=== PATIENT | male | born 1960 | race Caucasian/White ===

== ENCOUNTER 2017-01-06 12:16 | Inpatient (IN) | payer OTHER ==
[2017-01-06] MEDS ORDERED: IPRATROPIUM-ALBUTEROL 3 ML NEB INHALATION STA (12:43)
--- NOTE | 2017-01-06 12:46 | ED ---
General Adult HPI - General Chief complaint: Shortness of Breath Stated complaint: Hypotension Time Seen by Provider: 01/06/17 12:35 Source: patient, RN notes reviewed Mode of arrival: ambulatory Limitations: no limitations - History of Present Illness Initial comments: Patient is a pleasant 56-year-old male presenting to the emergency Department with concern for low blood pressure. Patient states when he went to the nurse at [facility] yesterday his blood pressure was 60 and he was told to drink a lot of water. Patient states he went there today and his blood pressure was low. Patient did not know he was coming to the hospital until they brought him. Patient states he does have some mild shortness of breath with exertion and also admits to having a cough that is dry. No fevers. No chest pain. Patient has a known history of atrial fibrillation. Patient did not take his blood pressure medicine yesterday or today. Patient is at [facility] secondary to history of alcohol problems. - Related Data Home Medications Medication Instructions Recorded Confirmed Chlorpheniramine Maleate 4 mg PO Q4H PRN 01/06/17 01/06/17 [Chlor-Trimeton] Furosemide [Lasix] 20 mg PO DAILY@0600 01/06/17 01/06/17 Magnesium Oxide [Mag-Ox] 400 mg PO TID@0600,1500,2200 01/06/17 01/06/17 Multivitamins, Thera [Multivitamin 1 tab PO DAILY@0600 01/06/17 01/06/17 (formulary)] Pantoprazole Sodium [Protonix] 40 mg PO DAILY@0600 01/06/17 01/06/17 Potassium Chloride ER [K-Dur 20] 20 meq PO BID@0600,1730 01/06/17 01/06/17 Rivaroxaban [Xarelto] 20 mg PO DAILY@0600 01/06/17 01/06/17 Spironolactone [Aldactone] 50 mg PO DAILY@0600 01/06/17 01/06/17 Thiamine [Vitamin B-1] 100 mg PO DAILY 01/06/17 01/06/17 guaiFENesin SYRUP 100MG/5ML 200 mg PO Q4H PRN 01/06/17 01/06/17 [Robitussin] traZODone HCL [TraZODone HCl] 50 - 150 mg PO HS 01/06/17 01/06/17 Allergies Allergy/AdvReac Type Severity Reaction Status Date / Time Penicillins Allergy Unknown Verified 01/06/17 13:04 Review of Systems ROS Statement: Those systems with pertinent positive or pertinent negative responses have been documented in the HPI. ROS Other: All systems not noted in ROS Statement are negative. Constitutional: Denies: fever Eyes: Denies: eye pain ENT: Denies: ear pain Respiratory: Reports: cough, dyspnea (With exertion) Cardiovascular: Denies: chest pain Endocrine: Denies: fatigue Gastrointestinal: Denies: abdominal pain Genitourinary: Denies: dysuria Musculoskeletal: Denies: back pain Skin: Denies: rash Neurological: Denies: weakness Past Medical History Past Medical History: Diabetes Mellitus, Hyperlipidemia, Hypertension Additional Past Medical History / Comment(s): chrons History of Any Multi-Drug Resistant Organisms: None Reported Past Surgical History: Bowel Resection, Cholecystectomy Additional Past Surgical History / Comment(s): gastric bypass, tere carpal tunnel Past Psychological History: No Psychological Hx Reported Smoking Status: Never smoker Past Alcohol Use History: Abuse, Daily, Heavy Past Drug Use History: None Reported General Exam Limitations: no limitations General appearance: alert, in no apparent distress Head exam: Present: atraumatic Eye exam: Present: normal appearance, PERRL ENT exam: Present: normal oropharynx Neck exam: Present: normal inspection Respiratory exam: Present: rhonchi Cardiovascular Exam: Present: irregular rhythm Expanded Peripheral pulses: 2+: Radial (R), Radial (L), Posterior Tibialis (R), Posterior Tibialis (L) GI/Abdominal exam: Present: soft. Absent: tenderness Extremities exam: Present: pedal edema (+1 bilateral which patient states is chronic). Absent: calf tenderness Neurological exam: Present: alert Psychiatric exam: Present: normal affect, normal mood Skin exam: Present: normal color Course Vital Signs 01/06/17 01/06/17 01/06/17 12:19 13:09 13:15 Temperature 98.0 F Pulse Rate 101 H 80 90 Respiratory 22 Rate Blood Pressure 104/59 O2 Sat by Pulse 98 Oximetry 01/06/17 14:20 Temperature Pulse Rate 99 Respiratory 16 Rate Blood Pressure 83/57 O2 Sat by Pulse 95 Oximetry - Reevaluation(s) Reevaluation #1: 01/06/17 14:19 Patient does meet criteria for severe sepsis diagnosed at 1419. Blood culture and lactic acid and fluid bolus and antibiotics will be ordered. EKG Findings - EKG Comments: EKG Findings:: A. fib with rate of 93. QRS 100. QT 388. QTC 42. Left axis. Left anterior fascicular block. Poor R-wave progression. No acute ST change. Procedures - Sepsis Sepsis Focused Exam #1 Time Sepsis Criteria Met: 14: Sepsis Focused Exam Date: 01/06/17 Sepsis Focused Exam Time: : Sepsis Focused Exam Complete: Yes Vital Signs & RN Notes Reviewed: Yes Capillary Refill: < 2 Seconds: Fingers, Toes Peripheral Pulses: Normal: Radial (R), Radial (L), Dorsalis Pedis (R), Dorsalis Pedis (L) Skin Color: Normal for Patient Respiratory Exam: rhonchi Cardiovascular Exam: regular rate, normal rhythm Medical Decision Making - Medical Decision Making Patient reevaluated. Patient updated on results and plan. Case discussed with Dr. Benoit, who will admit for hospital call. - Lab Data Result diagrams: 01/06/17 13:00 01/06/17 13:00 Lab Results 01/06/17 01/06/17 01/06/17 Range/Units 13:00 13:00 13:00 WBC 4.9 (3.8-10.6) k/uL RBC 3.52 L (4.30-5.90) m/uL Hgb 9.2 L (13.0-17.5) gm/dL Hct 30.9 L (39.0-53.0) % MCV 87.6 (80.0-100.0) fL MCH 26.0 (25.0-35.0) pg MCHC 29.7 L (31.0-37.0) g/dL RDW 17.6 H (11.5-15.5) % Plt Count 281 (150-450) k/uL Neutrophils % 74 % Lymphocytes % 12 % Monocytes % 7 % Eosinophils % 4 % Basophils % 1 % Neutrophils # 3.6 (1.3-7.7) k/uL Lymphocytes # 0.6 L (1.0-4.8) k/uL Monocytes # 0.3 (0-1.0) k/uL Eosinophils # 0.2 (0-0.7) k/uL Basophils # 0.1 (0-0.2) k/uL Hypochromasia Moderate Anisocytosis Slight PT (9.0-12.0) sec INR (<1.2) APTT (22.0-30.0) sec Sodium 133 L (137-145) mmol/L Potassium 4.7 (3.5-5.1) mmol/L Chloride 101 (98-107) mmol/L Carbon Dioxide 25 (22-30) mmol/L Anion Gap 7 mmol/L BUN 8 L (9-20) mg/dL Creatinine 0.64 L (0.66-1.25) mg/dL Est GFR (MDRD) Af Amer >60 (>60 ml/min/1.73 sqM) Est GFR (MDRD) Non-Af >60 (>60 ml/min/1.73 sqM) Glucose 79 (74-99) mg/dL Calcium 8.5 (8.4-10.2) mg/dL Total Bilirubin 1.0 (0.2-1.3) mg/dL AST 46 (17-59) U/L ALT 30 (21-72) U/L Alkaline Phosphatase 163 H (38-126) U/L Total Creatine Kinase <20 L (55-170) U/L CK-MB (CK-2) 0.5 (0.0-2.4) ng/mL CK-MB (CK-2) Rel Index Troponin I <0.012 (0.000-0.034) ng/mL NT-Pro-B Natriuret Pep pg/mL Total Protein 6.6 (6.3-8.2) g/dL Albumin 2.8 L (3.5-5.0) g/dL 01/06/17 01/06/17 Range/Units 13:00 13:00 WBC (3.8-10.6) k/uL RBC (4.30-5.90) m/uL Hgb (13.0-17.5) gm/dL Hct (39.0-53.0) % MCV (80.0-100.0) fL MCH (25.0-35.0) pg MCHC (31.0-37.0) g/dL RDW (11.5-15.5) % Plt Count (150-450) k/uL Neutrophils % % Lymphocytes % % Monocytes % % Eosinophils % % Basophils % % Neutrophils # (1.3-7.7) k/uL Lymphocytes # (1.0-4.8) k/uL Monocytes # (0-1.0) k/uL Eosinophils # (0-0.7) k/uL Basophils # (0-0.2) k/uL Hypochromasia Anisocytosis PT 20.3 H (9.0-12.0) sec INR 2.1 H (<1.2) APTT 34.7 H (22.0-30.0) sec Sodium (137-145) mmol/L Potassium (3.5-5.1) mmol/L Chloride (98-107) mmol/L Carbon Dioxide (22-30) mmol/L Anion Gap mmol/L BUN (9-20) mg/dL Creatinine (0.66-1.25) mg/dL Est GFR (MDRD) Af Amer (>60 ml/min/1.73 sqM) Est GFR (MDRD) Non-Af (>60 ml/min/1.73 sqM) Glucose (74-99) mg/dL Calcium (8.4-10.2) mg/dL Total Bilirubin (0.2-1.3) mg/dL AST (17-59) U/L ALT (21-72) U/L Alkaline Phosphatase (38-126) U/L Total Creatine Kinase (55-170) U/L CK-MB (CK-2) (0.0-2.4) ng/mL CK-MB (CK-2) Rel Index Troponin I (0.000-0.034) ng/mL NT-Pro-B Natriuret Pep 1770 pg/mL Total Protein (6.3-8.2) g/dL Albumin (3.5-5.0) g/dL - Radiology Data Radiology results: image reviewed (Chest x-ray shows mild cardiomegaly. By basilar airspace disease. Bilateral effusions.) Critical Care Time Critical Care Time: Yes Total Critical Care Time: 32 Disposition Clinical Impression: Severe sepsis, Pneumonia Disposition: ADMITTED IP TO THIS [facility] Condition: Serious Referrals: Nonstaff,Physician [Primary Care Provider] - 1-2 days Decision Time: 14:25
[2017-01-06 13:15] LABS: Anisocytosis Slight; Basophils # (A) 0.1 k/uL (0-0.2); Basophils % (A) 1 %; CH 27.2; CHCM 31.2; Eosinophils # (A) 0.2 k/uL (0-0.7); Eosinophils % (A) 4 %; HCT 30.9 % (39.0-53.0); HDW 2.74; HGB 9.2 gm/dL (13.0-17.5); Hypochromasia Moderate; Luc # (Auto) 0.11; Luc % (Auto) 2; Lymphocytes # (A) 0.6 k/uL (1.0-4.8); Lymphocytes % (A) 12 %; MCHC 29.7 g/dL (31.0-37.0); MCV 87.6 fL (80.0-100.0); Mean Platelet Volume 7.5; Monocytes # (A) 0.3 k/uL (0-1.0); Monocytes % (A) 7 %; Neutrophils # (A) 3.6 k/uL (1.3-7.7); Neutrophils % (A) 74 %; RBC 3.52 m/uL (4.30-5.90); RDW 17.6 % (11.5-15.5); WBC 4.9 k/uL (3.8-10.6); WBC (Perox) 5.09
--- NOTE | 2017-01-06 13:31 | XR ---
EXAMINATION TYPE: XR chest 2V DATE OF EXAM: 01/06/2017 HISTORY: difficulty breathing. REFERENCE: NONE. FINDINGS: The heart is mildly prominent. There are bilateral effusions. There is bibasilar airspace d isease. IMPRESSION: 1. MILD CARDIOMEGALY. 2. BILATERAL EFFUSIONS. 3. BIBASILAR AIRSPACE DISEASE.
[2017-01-06 13:32] LABS: ALT 30 U/L (21-72); AST 46 U/L (17-59); Alkaline Phosphatase 163 U/L (38-126); Anion Gap 7 mmol/L; Blood Urea Nitrogen 8 mg/dL (9-20); Calcium 8.5 mg/dL (8.4-10.2); Carbon Dioxide 25 mmol/L (22-30); Chloride 101 mmol/L (98-107); Glucose 79 mg/dL (74-99); Non-African American GFR(MDRD) >60 (>60 ml/min/1.73 sqM); Potassium 4.7 mmol/L (3.5-5.1); Sodium 133 mmol/L (137-145); Total Protein 6.6 g/dL (6.3-8.2)
[2017-01-06 13:34] LABS: INR 2.1 (<1.2); Partial Thromboplastin Time 34.7 sec (22.0-30.0); Prothrombin Time 20.3 sec (9.0-12.0)
[2017-01-06 13:35] LABS: Creatine Kinase <20 U/L (55-170)
[2017-01-06 13:48] LABS: Creatine Kinase MB 0.5 ng/mL (0.0-2.4); Troponin I <0.012 ng/mL (0.000-0.034)
[2017-01-06] MEDS ORDERED: SODIUM CHLORIDE 0.9% 500 ML IV STA (14:20)
[2017-01-06] MEDS ORDERED: SODIUM CHLORIDE 0.9% 1,000 ML IV STA ×3 (14:20→14:21)
[2017-01-06] MEDS ORDERED: PNEUMONIA PROTOCOL UTILIZED 1 EACH MISC PO PRN (14:22)
[2017-01-06] MEDS ORDERED: AZITHROMYCIN 500 MG in SODIUM CHLORIDE 0.9% 250 ML IVPB STA (14:22)
[2017-01-06] MEDS ORDERED: LORazepam 0.5 MG TAB PO PRN (17:38)
[2017-01-06] MEDS: FUROSEMIDE 10 MG/ML 4 ML VIAL IV SCH (18:52)
[2017-01-06] MEDS: SODIUM CHLORIDE 0.9% 1,000 ML IV SCH (18:53)
--- NOTE | 2017-01-06 20:31 | HP ---
HISTORY AND PHYSICAL CHIEF COMPLAINT: Shortness of breath. HISTORY: This 56-year-old gentleman with past medical history of atrial fibrillation, hypertension, hyperlipidemia being followed by primary physician in the [facility] was receiving alcohol rehab in [place] for the last 1 week. The patient had some cough and shortness of breath for the past few days. Patient also found to have blood pressure low up to 60 systolic according to him and the patient complained of some weakness and tiredness. No syncope was reported. The patient came to [facility] and admitted for evaluation and treatment. Chest x-ray showed possible pneumonia versus CHF and BNP was noted to be 1770. At this time the patient admitted for further evaluation and treatment. There is no history of fever, rigors, headache, loss of consciousness or seizures. PAST MEDICAL HISTORY: History of EtOH, history hypertension, history of atrial fibrillation, bowel resection, gastric bypass. MEDICATIONS: 1. Trazodone 50-150 mg p.o. q.h.s. 2. Robitussin 200 mg q.4h p.r.n. 3. Vitamin B 100 mg p.o. daily. 4. Aldactone 50 mg daily. 5. Xarelto 20 mg daily. 6. K-Dur 20 mg p.o. b.i.d. 7. Protonix 40 mg p.o. daily. 8. Multivitamins 1 p.o. daily. 9. Magnesium oxide 400 mg p.o. t.i.d. 10.Lasix 20 mg p.o. daily. ALLERGIES: PENICILLIN. FAMILY HISTORY: No history of heart disease or strokes in the family. SOCIAL HISTORY: History of alcohol abuse. No history of smoking. Up to fifth and a half. REVIEW OF SYSTEMS: ENT: No diminished hearing or vision. CARDIOVASCULAR: As mentioned. RESPIRATORY: As mentioned earlier. GI: No nausea. : No dysuria. NERVOUS SYSTEM: As mentioned earlier. ALLERGY/IMMUNOLOGY: Asthma, hayfever. MUSCULOSKELETAL: As mentioned earlier. HEMATOLOGY: No history anemia. ENDOCRINE: No history of diabetes, hypothyroid. CONSTITUTIONAL: As mentioned earlier. DERMATOLOGY: Negative. RHEUMATOLOGY: Negative. PSYCHIATRIC: As mentioned earlier. PHYSICAL EXAM: Patient is alert, oriented x3. Pulse 93, blood pressure 91/56, respiration 18, temperature 96.9, pulse ox 98% 2 L. HEENT: Conjunctivae normal. Oral mucosa moist. NECK: No jugular venous distention. No lymph node enlargement. CARDIOVASCULAR: S1, S2 irregular. RESPIRATORY: Breath sounds diminished in the bases. A few scattered rhonchi. No crackles. Breath sounds are markedly diminished at both bases. ABDOMEN: Soft, obese, nontender. No mass palpable. LEGS: Minimal bilateral leg edema. NERVOUS SYSTEM: Higher functions as mentioned earlier. Moves all 4 limbs. No focal motor deficits. LYMPHATICS: No lymphadenopathy in the neck, axillae or groin. SKIN: No rash, ulcer or bleeding. LABS: WBC 4.2, hemoglobin 9.2, INR is 2.1, sodium is 133. ASSESSMENT: 1. Shortness of breath and cough for evaluation possibly CHF acute exacerbation. Rule out pneumonia. 2. Anemia. 3. History of ETOH. 4. Hypertension. 5. Hyperlipidemia. 6. History atrial fibrillation, chronic. 7. Cholecystectomy. 8. Bowel resection. 9. History gastric bypass. RECOMMENDATIONS AND DISCUSSION: This 56-year-old gentleman presented with multiple complex medical issues. Will monitor the patient closely. Continue the current management and symptomatic treatment. At this time I would recommend monitor blood pressure closely. Diuretics, empiric antibiotics initiated. I would recommend a 2D echo with Doppler. Cardiology consultation. Continue the rest of medications and monitor. Ativan p.r.n. Also supplement multivitamin too. Otherwise DVT prophylaxis. Proton pump inhibitors. See orders for details. Guarded prognosis because of multiple complex medical issues. Discussed with the patient who understands. Further recommendations to follow. I cut down the IV to 40 mL for now and continue to watch for any hypotension and strict intake output per chart and daily weights also will be monitored. further recommendations to follow. MMODL / IJN: [id number] / MTDD
[2017-01-06] MEDS ORDERED: traZODone HCL 50 MG TAB PO SCH (21:00)
[2017-01-06] MEDS ORDERED: HEPARIN SODIUM,PORCINE 5,000 UNIT/ML 1 ML VIAL SQ SCH (21:00)
[2017-01-06] MEDS: traZODone HCL 50 MG TAB PO SCH (22:04)
[2017-01-06] MEDS: MAGNESIUM OXIDE 400 MG TAB PO SCH (22:04)
[2017-01-06 22:12] LABS: Appearance,Urine Clear (Clear); Bilirubin,Urine Negative (Negative); Glucose,Urine (UA) Negative (Negative); Ketones,Urine Negative (Negative); Leukocyte Esterase,Urine Negative (Negative); Nitrite,Urine Negative (Negative); Protein,Urine Negative (Negative); Specific Gravity,Urine 1.003 (1.001-1.035); UA Billing (MACRO vs. MICRO) CHEM; Urobilinogen,Urine <2.0 mg/dL (<2.0)
[2017-01-07] MEDS: MAGNESIUM OXIDE 400 MG TAB PO SCH ×3 (06:02→21:00)
[2017-01-07] MEDS: RIVAROXABAN 10 MG TAB PO SCH (06:02)
[2017-01-07] MEDS: SPIRONOLACTONE 25 MG TAB PO SCH (06:02)
[2017-01-07] MEDS: guaiFENesin SYRUP 100MG/5ML 200 MG/10 ML CUP PO PRN ×4 (06:20→21:00)
[2017-01-07 06:27] LABS: Anisocytosis Slight; Basophils # (A) 0.1 k/uL (0-0.2); Basophils % (A) 1 %; CH 27.1; CHCM 30.2; Eosinophils # (A) 0.3 k/uL (0-0.7); Eosinophils % (A) 7 %; HCT 29.6 % (39.0-53.0); HDW 2.63; HGB 8.8 gm/dL (13.0-17.5); Hypochromasia Marked; Luc # (Auto) 0.09; Luc % (Auto) 3; Lymphocytes # (A) 0.6 k/uL (1.0-4.8); Lymphocytes % (A) 17 %; MCH 26.8 pg (25.0-35.0); MCHC 29.7 g/dL (31.0-37.0); MCV 90.1 fL (80.0-100.0); Mean Platelet Volume 7.3; Monocytes # (A) 0.2 k/uL (0-1.0); Monocytes % (A) 7 %; Neutrophils # (A) 2.4 k/uL (1.3-7.7); Neutrophils % (A) 66 %; RBC 3.28 m/uL (4.30-5.90); RDW 17.9 % (11.5-15.5); WBC 3.7 k/uL (3.8-10.6); WBC (Perox) 3.73
[2017-01-07 06:39] LABS: Anion Gap 5 mmol/L; Blood Urea Nitrogen 6 mg/dL (9-20); Calcium 8.6 mg/dL (8.4-10.2); Carbon Dioxide 27 mmol/L (22-30); Chloride 104 mmol/L (98-107); Glucose 74 mg/dL (74-99); Non-African American GFR(MDRD) >60 (>60 ml/min/1.73 sqM); Potassium 4.4 mmol/L (3.5-5.1); Sodium 136 mmol/L (137-145)
--- NOTE | 2017-01-07 07:24 | XR ---
EXAMINATION TYPE: XR chest 1V portable DATE OF EXAM: 01/07/2017 HISTORY: chf. REFERENCE: Previous study dated 01/06/2017. FINDINGS: The heart remains enlarged. There is vascular congestion and subtle interstitial change. Th ere are bilateral effusions worse on the left than the right. There is left basilar airspace disease. IMPRESSION: WORSENING APPEARANCE OF THE CHEST WITH WORSENING CHANGES OF HEART FAILURE, LEFT BASILAR AIRSPACE DISE ASE AND BILATERAL EFFUSIONS.
[2017-01-07] MEDS: POTASSIUM CHLORIDE ER 20 MEQ TAB.ER PO SCH ×2 (07:27→17:53)
[2017-01-07] MEDS: FUROSEMIDE 10 MG/ML 4 ML VIAL IV SCH ×2 (08:47→21:00)
[2017-01-07] MEDS: AZITHROMYCIN 500 MG TAB PO SCH (08:47)
[2017-01-07] MEDS: PANTOPRAZOLE 40 MG TABLET PO SCH (08:48)
[2017-01-07] MEDS: THIAMINE 100 MG TAB PO SCH (11:54)
[2017-01-07] MEDS: MULTIVITAMINS, THERA 1 EACH TAB PO SCH (11:54)
--- NOTE | 2017-01-07 12:05 | CONS ---
CONSULTATION Mr. Zamarripa is a 56-year-old male with a history of chronic atrial fibrillation ablation, history of cardiomyopathy, who was at [facility] for rehab for alcoholism and was noted to having a low blood pressure, referred and subsequently admitted. The patient lives in the [facility] and has been admitted about a year or so ago with congestive heart failure and atrial fibrillation. According to him, his initial ejection fraction was in the 25-30%. He was anticoagulated and it was felt according to him that the etiology of his cardiomyopathy was alcoholism. He has been drinking quite heavily since January after the of his . He denies any dizziness. He has no chest pain. He remembers that he had a stress test about a year ago and no evidence of obstructive coronary artery disease was noted. He has some chronic peripheral edema. No clear PND nor orthopnea. He felt weak and tired with no syncope yesterday. His blood pressure has been on the lower side for the last few days. His coronary risk factors are negative for smoking, which he stopped in the s. He is nondiabetic. He had a prior history of hypertension. MEDICATION: His medications at home include: 1. Lasix 20 mg daily. 2. Protonix. 3. Potassium. 4. Xarelto 20 mg daily. 5. Aldactone 50 mg daily. 6. Thiamin. 7. Trazodone. 8. Robitussin. REVIEW OF SYSTEMS: RESPIRATORY SYSTEM: He has some dyspnea on exertion. No recent wheezing. GI system: No nausea. No vomiting. No GI bleeding. system: No dysuria or hematuria. Nervous system: He denies any stroke or seizure. PHYSICAL EXAMINATION: A 56-year-old male, alert, oriented, in no apparent distress. Blood pressure 111/60 with a heart rate in 90s, afebrile. His blood pressure at times was down in the 80s. HEAD: Normocephalic. Eyes sclerae anicteric. Neck good upstroke. No bruit. No jugular venous distention. LUNGS: Decreased breath sounds at the bases with scattered rhonchi. HEART: Irregular regular S1, S2. No S3. No rub appreciated. ABDOMEN: Soft, nontender. Positive bowel sounds. No megaly. Extremities: Chronic discoloration with decreased distal pulses. LAB DATA: EKG, atrial fibrillation, rate of 93, left axis deviation, poor R progression. Chest x- ray revealed evidence of congestive heart failure with bilateral effusion. Lab data reveal hemoglobin of 8.8, white blood cell of 3.7, platelet count of 236. BUN and creatinine 6 and 0.61, potassium 4.4. Troponin is less than 0.012. NT-proBNP of 1770. IMPRESSION: 1. Episode of hypotension. 2. Chronic atrial fibrillation, persistent and anticoagulated. 3. Symptoms of congestive heart failure in a patient with history of cardiomyopathy, most likely alcoholic cardiomyopathy. 4. Anemia. 5. Prior history of hypertension, now hypotensive. RECOMMENDATION: I do not see evidence to suggest that the patient has a infectious process. I will increase the dose of his IV Lasix to b.i.d. I will repeat his echocardiogram. I will try to obtain his prior workup and depending on his progress, further recommendation will be made. Thank you for this consult. We will follow with you. SALVADOR / IJN: [id number] /
--- NOTE | 2017-01-07 12:22 | P.CNPUL ---
History of Present Illness Consult date: 01/07/17 Reason for consult: dyspnea, hypoxemia, pneumonia, abnormal CXR/CT, other Chief complaint: Shortness of breath, sepsis, pneumonia, heart failure History of present illness: Consult dated 01/07/2017 This is a 56-year-old male who presented to the emergency department because of shortness of breath and apparent low blood pressure. Apparently a nurse at the [facility] that he was staying at noted that his systolic blood pressure was in the 60s and 70s. He was told to drink lots of water. Subsequently, he was also found the following day to have a low blood pressure and for that reason he was sent into the hospital. In addition, he does have some mild shortness of breath. A bit of a cough not producing any phlegm. No fever. No chills. No chest pain. Unknown history of atrial fibrillation. The patient was admitted with a diagnosis of pneumonia and sepsis and heart failure. The patient sleeping comfortably laying on his right side. Has no complaints when I first walked into the room. Review of Systems A 12 point review of system is positive for shortness of breath dry cough weakness and low blood pressure. The rest of his 12 point review of system is unremarkable. The patient does have a history of diabetes hyperlipidemia and hypertension as well as inflammatory bowel disease. He's had previous bowel resection and gallbladder removal. Past Medical History Past Medical History: Atrial Fibrillation, Hyperlipidemia, Hypertension Additional Past Medical History / Comment(s): chrons History of Any Multi-Drug Resistant Organisms: None Reported Past Surgical History: Bowel Resection, Cholecystectomy Additional Past Surgical History / Comment(s): gastric bypass, tere carpal tunnel Past Anesthesia/Blood Transfusion Reactions: No Reported Reaction Past Psychological History: No Psychological Hx Reported Smoking Status: Never smoker Past Alcohol Use History: Abuse, Daily, Heavy Past Drug Use History: None Reported Medications and Allergies Home Medications Medication Instructions Recorded Confirmed Type Chlorpheniramine Maleate 4 mg PO Q4H PRN 01/06/17 01/06/17 History [Chlor-Trimeton] Furosemide [Lasix] 20 mg PO DAILY@0600 01/06/17 01/06/17 History Magnesium Oxide [Mag-Ox] 400 mg PO TID@0600,1500,2200 01/06/17 01/06/17 History Multivitamins, Thera [Multivitamin 1 tab PO DAILY@0600 01/06/17 01/06/17 History (formulary)] Pantoprazole Sodium [Protonix] 40 mg PO DAILY@0600 01/06/17 01/06/17 History Potassium Chloride ER [K-Dur 20] 20 meq PO BID@0600,1730 01/06/17 01/06/17 History Rivaroxaban [Xarelto] 20 mg PO DAILY@0600 01/06/17 01/06/17 History Spironolactone [Aldactone] 50 mg PO DAILY@0600 01/06/17 01/06/17 History Thiamine [Vitamin B-1] 100 mg PO DAILY 01/06/17 01/06/17 History guaiFENesin SYRUP 100MG/5ML 200 mg PO Q4H PRN 01/06/17 01/06/17 History [Robitussin] traZODone HCL [TraZODone HCl] 50 - 150 mg PO HS 01/06/17 01/06/17 History Allergies Allergy/AdvReac Type Severity Reaction Status Date / Time Penicillins Allergy Unknown Verified 01/06/17 13:04 Physical Exam Osteopathic Statement: *. No significant issues noted on an osteopathic structural exam other than those noted in the History and Physical/Consult. Vitals: Vital Signs Temp Pulse Pulse Resp BP BP Pulse Ox 01/07/17 11:49 98.7 F 83 16 95/67 98 01/07/17 08:00 98.6 F 71 16 92/61 96 01/07/17 04:00 97.1 F L 95 16 111/67 98 01/07/17 00:00 97.0 F L 93 16 105/59 97 01/06/17 20:00 96.7 F L 96 16 105/66 98 01/06/17 16:00 93 18 01/06/17 15:47 98.3 F 01/06/17 15:41 96.7 F L 93 18 91/56 99 01/06/17 15:27 99 18 115/75 98 01/06/17 15:11 93 18 88/49 98 01/06/17 14:38 95 18 90/61 98 01/06/17 14:22 18 01/06/17 14:20 99 16 83/57 95 01/06/17 13:37 88 18 116/78 94 L 01/06/17 13:15 90 10/07/17 13:09 80 01/06/17 13:07 86 18 105/72 93 L 01/06/17 12:19 98.0 F 101 H 22 104/59 98 Intake and Output 01/06/17 01/07/17 01/07/17 22:59 06:59 14:59 Intake Total 600 180 Output Total 9936 022 9386 Balance -1299 Intake: Oral 600 180 Output: Urine 8790 669 4612 Other: Voiding Method Urinal Urinal # Voids 2 Weight 113.398 kg 107.5 kg No acute distress, oriented 3 HEENT examination is unremarkable. Mucous membranes are moist. No oral lesions. Neck supple. Full range of motion. No adenopathy or thyromegaly. Neck veins are flat. Cardiovascular examination reveals regular rhythm rate. S1-S2 normal. No S3 or S4. The patient does have a soft heart murmur. Lungs reveal bibasilar crackles and rhonchi. Breath sounds are equal bilaterally but diminished at the bases.. Abdomen soft bowel sounds are heard. No masses or tenderness. Extremities are intact. No cyanosis clubbing. Slight edema. Skin is without rash or lesion. Neurologic examination is brief but nonfocal. Results - Laboratory Findings CBC and BMP: 01/07/17 05:42 01/07/17 05:42 PT/INR, D-dimer PT 20.3 sec (9.0-12.0) H 01/06/17 13:00 INR 2.1 (<1.2) H 01/06/17 13:00 Abnormal lab findings: Abnormal Labs 01/06/17 01/06/17 01/06/17 13:00 13:00 13:00 WBC RBC 3.52 L Hgb 9.2 L Hct 30.9 L MCHC 29.7 L RDW 17.6 H Lymphocytes # 0.6 L PT INR APTT Sodium 133 L BUN 8 L Creatinine 0.64 L Alkaline Phosphatase 163 H Total Creatine Kinase <20 L Albumin 2.8 L U Benzodiazepines Scrn 01/06/17 01/06/17 01/07/17 13:00 22:00 05:42 WBC 3.7 L RBC 3.28 L Hgb 8.8 L Hct 29.6 L MCHC 29.7 L RDW 17.9 H Lymphocytes # 0.6 L PT 20.3 H INR 2.1 H APTT 34.7 H Sodium BUN Creatinine Alkaline Phosphatase Total Creatine Kinase Albumin U Benzodiazepines Scrn Detected H 01/07/17 05:42 WBC RBC Hgb Hct MCHC RDW Lymphocytes # PT INR APTT Sodium 136 L BUN 6 L Creatinine 0.61 L Alkaline Phosphatase Total Creatine Kinase Albumin U Benzodiazepines Scrn - Diagnostic Findings Chest x-ray: image reviewed (X-rays labs and medications are all reviewed.) Assessment and Plan (1) CHF (congestive heart failure) Status: Acute (2) Diabetes Status: Acute (3) Hypertension Status: Acute (4) Hyperlipidemia Status: Acute (5) Hypotension Status: Acute (6) Pneumonia Status: Acute (7) Severe sepsis Status: Acute Plan: Plan dated 01/07/2017 The patient's medications labs and x-rays are all reviewed. The patient appears to have a combination of both heart failure and possible pneumonia. Also, sepsis may be responsible for the hypotension although the patient's normotensive now. Lactic acid was normal. Cultures be done. Repeat x-rays of be done. The patient should be on breathing treatments and antibiotics. We'll continue to follow. Time with Patient: Greater than 30
[2017-01-07] MEDS: SODIUM CHLORIDE 0.9% 1,000 ML IV SCH (15:49)
--- NOTE | 2017-01-07 17:19 | PN ---
PROGRESS NOTE DATE OF SERVICE: 01/07/2017 This 56-year-old gentleman who was admitted with shortness of breath possibly had CHF acute exacerbation. The patient is on diuretics also. The patient is empirically started on antibiotics as well. Pulmonary and Cardiology following the patient closely. Patient had possibly severe cardiomyopathy possibly related to alcohol and is being given for possible pneumonia. Please note patient is from [facility] and actually in rehab at this time. PAST MEDICAL HISTORY: Reviewed. REVIEW OF SYSTEMS: CARDIOVASCULAR: As mentioned. RESPIRATORY: As mentioned earlier. GI: No nausea. : No dysuria. NERVOUS SYSTEM: No numbness or weakness. CURRENT MEDICATIONS: 1. DuoNeb q.i.d. and p.r.n. 2. Zithromax 500 mg p.o. 3. Rocephin 1 g daily. 4. Benadryl 25 mg q.4. 5. Lasix 40 mg b.i.d. 6. Robitussin 200 mg p.r.n. 7. Ativan 0.5 mg p.r.n. 8. Magnesium oxide. 9. Multivitamins 1 daily. 10.Protonix 40 mg daily. 11.Xarelto 20 mg daily. 12.Aldactone 50 mg. 13.Vitamin B thiamin 100 mg daily. 14.Desyrel 50 mg. PHYSICAL EXAM: Patient is alert, oriented x3. Pulse 83, blood pressure 95/60, respirations 16, temperature 98.2, pulse ox 98% on 2 L. HEENT: Conjunctivae normal. CARDIOVASCULAR: S1, S2. RESPIRATORY: Breath sounds diminished at the bases. A few scattered rhonchi and crackles. ABDOMEN: Soft, nontender. No mass palpable. LEGS: No edema. NERVOUS SYSTEM: No focal deficits. LABS: WBC 3,6, hemoglobin is 8.9, sodium 136, INR is 2.1. ASSESSMENT: 1. Shortness of breath and cough, possibly congestive heart failure acute exacerbation with possible suppurative pneumonia. 2. Anemia. 3. History of ETOH. 4. Hypertension. 5. Hyperlipidemia. RECOMMENDATIONS AND DISCUSSION: I recommend to continue the current management and symptomatic treatment. Continue with the current medications, continue with the cautious diuresis. The blood pressure appears to be stabilized at this time. Otherwise we will continue to monitor. Empiric antibiotics. Guarded prognosis. Further recommendations to follow. 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 MMODL / IJN: [id number] / NANCY
[2017-01-07] MEDS: traZODone HCL 50 MG TAB PO SCH (21:00)
[2017-01-08] MEDS: guaiFENesin SYRUP 100MG/5ML 200 MG/10 ML CUP PO PRN ×3 (00:31→11:58)
[2017-01-08] MEDS: POTASSIUM CHLORIDE ER 20 MEQ TAB.ER PO SCH ×2 (06:23→17:08)
[2017-01-08] MEDS: SPIRONOLACTONE 25 MG TAB PO SCH (06:23)
[2017-01-08] MEDS: MAGNESIUM OXIDE 400 MG TAB PO SCH ×3 (06:24→20:27)
[2017-01-08] MEDS: RIVAROXABAN 10 MG TAB PO SCH (06:24)
[2017-01-08 06:39] LABS: Anisocytosis Slight; Basophils % (A) 1 %; CH 26.6; CHCM 29.6; Eosinophils # (A) 0.4 k/uL (0-0.7); Eosinophils % (A) 7 %; HCT 32.6 % (39.0-53.0); HDW 2.67; HGB 9.7 gm/dL (13.0-17.5); Hypochromasia Marked; Luc # (Auto) 0.15; Luc % (Auto) 3; Lymphocytes # (A) 0.9 k/uL (1.0-4.8); Lymphocytes % (A) 15 %; MCH 26.8 pg (25.0-35.0); MCHC 29.8 g/dL (31.0-37.0); MCV 89.8 fL (80.0-100.0); Mean Platelet Volume 6.9; Monocytes # (A) 0.5 k/uL (0-1.0); Monocytes % (A) 8 %; Neutrophils % (A) 67 %; RBC 3.63 m/uL (4.30-5.90); RDW 16.6 % (11.5-15.5)
[2017-01-08 06:53] LABS: Anion Gap 6 mmol/L; Blood Urea Nitrogen 10 mg/dL (9-20); Calcium 8.6 mg/dL (8.4-10.2); Carbon Dioxide 29 mmol/L (22-30); Chloride 98 mmol/L (98-107); Glucose 77 mg/dL (74-99); Non-African American GFR(MDRD) >60 (>60 ml/min/1.73 sqM); Potassium 4.1 mmol/L (3.5-5.1); Sodium 133 mmol/L (137-145)
[2017-01-08] MEDS: AZITHROMYCIN 500 MG TAB PO SCH (08:03)
[2017-01-08] MEDS: PANTOPRAZOLE 40 MG TABLET PO SCH (08:03)
[2017-01-08] MEDS: FUROSEMIDE 10 MG/ML 4 ML VIAL IV SCH ×2 (08:06→20:27)
--- NOTE | 2017-01-08 10:14 | ECHOF ---
Referral Reason:chf MEASUREMENTS -------- HEIGHT: 180.3 cm WEIGHT: 102.5 kg BP: 94/53 RVIDd: 3.4 cm (< 3.3) IVSd: 1.3 cm (0.6 - 1.1) LVIDd: 5.5 cm (3.9 - 5.3) LVPWd: 1.3 cm (0.6 - 1.1) IVSs: 1.3 cm LVIDs: 5.0 cm LVPWs: 1.8 cm LA Diam: 4.0 cm (2.7 - 3.8) LAESV Index (A-L): 39.57 ml/m Ao Diam: 4.2 cm (2.0 - 3.7) AV Cusp: 2.3 cm (1.5 - 2.6) MV EXCURSION: 26.030 mm (> 18.000) MV EF SLOPE: 251 mm/s (70 - 150) EPSS: 1.0 cm FINDINGS -------- Atrial fibrillation. The left ventricular size is normal. There is borderline concentric left ventricular hypertrophy. Overall left ventricular systolic function is severely impaired with, an EF between 25 - 30 %. The right ventricle is mildly enlarged. LA is moderately dilated 34-39 ml/m2 The right atrium is normal in size. There is mild aortic valve sclerosis. Mild mitral annular calcification present. There is trace mitral regurgitation. Trace tricuspid regurgitation present. The pulmonic valve was not well visualized. The aortic root is dilated measuring 4.2cm. Normal inferior vena cava with normal inspiratory collapse consistent with estimated right atrial pressure of 5 mmHg. There is no pericardial effusion. CONCLUSIONS -------- 1. Atrial fibrillation. 2. There is trace mitral regurgitation. 3. Trace tricuspid regurgitation present. 4. The pulmonic valve was not well visualized. 5. The aortic root is dilated measuring 4.2cm. 6. Normal inferior vena cava with normal inspiratory collapse consistent with estimated right atrial pressure of 5 mmHg. 7. There is no pericardial effusion. 8. The left ventricular size is normal. 9. There is borderline concentric left ventricular hypertrophy. 10. Overall left ventricular systolic function is severely impaired with, an EF between 25 - 30 %. 11. The right ventricle is mildly enlarged. 12. LA is moderately dilated 34-39 ml/m2 13. The right atrium is normal in size. 14. There is mild aortic valve sclerosis. 15. Mild mitral annular calcification present. CORE INSERTER: Zamzam Vaz RDCS
[2017-01-08] MEDS: THIAMINE 100 MG TAB PO SCH (11:58)
[2017-01-08] MEDS: MULTIVITAMINS, THERA 1 EACH TAB PO SCH (11:58)
[2017-01-08] MEDS ORDERED: Magnesium Replacement Protocol 1 EACH MISC MISCELLANE PRN (12:20)
--- NOTE | 2017-01-08 12:46 | P.PN ---
Subjective Progress Note Date: 01/08/17 Principal diagnosis: pneumonia, sepsis This is a pleasant 56-year-old gentleman with a history of chronic atrial fibrillation, cardiomyopathy and alcoholism. Presented from [place] after he was noted to have low blood pressure. Patient apparently lives in the [facility] and has been admitted or so ago with congestive heart failure and atrial fibrillation, according to him ejection fraction at that time was 25-30% . He was anticoagulated at that time and it was felt according to him that the etiology of his cardiomyopathy was alcoholism. He has been drinking quite heavily since the of his . Repeat 2-D echo with Doppler this admission shows an ejection fraction of 25-30%, consistent with history. He apparently had a stress test about a year ago that was negative for ischemia. Upon examination, patient is resting comfortably in bed. He continues to complain of a cough, productive. He denies any complaints of PND or orthopnea, has no chest discomfort, dizziness or palpitations. He does complain of chronic peripheral edema. Objective - Vital Signs Vital signs: Vital Signs Temp 96.4 F L 01/08/17 08:00 Pulse 115 H 01/08/17 08:00 Resp 18 01/08/17 08:00 BP 103/44 01/08/17 08:00 Pulse Ox 93 L 01/08/17 08:00 Intake & Output 01/07/17 01/08/17 01/08/17 18:59 06:59 18:59 Intake Total 560 1200 350 Output Total 3470 900 400 Balance -2910 300 -50 Weight 102.8 kg 102.8 kg Intake: Intake, IV Titration 50 Amount cefTRIAXone 1,000 mg In 50 Sodium Chloride 0.9% 50 ml @ 100 mls/hr IVPB Q24HR [facility] Rx#:[id number] Oral 560 1200 300 Output: Urine 3470 900 400 Other: Voiding Method Urinal - Exam PHYSICAL EXAMINATION: HEENT: Head is atraumatic, normocephalic. Pupils equal, round. Neck is supple. There is no elevated jugular venous pressure. HEART EXAMINATION: Heart sounds irregularly irregular, S1 and S2 normal. No murmur or gallop heard. CHEST EXAMINATION: Lungs reveal diminished air entry throughout. No chest wall tenderness is noted on palpation or with deep breathing. ABDOMEN: Soft, nontender. Bowel sounds are heard. No organomegaly noted. EXTREMITIES: 2+ peripheral pulses with evidence of trace peripheral edema and no calf tenderness noted. NEUROLOGIC patient is awake, alert and oriented x3. . - Labs CBC & Chem 7: 01/08/17 05:45 01/08/17 05:45 Labs: Abnormal Lab Results - Last 24 Hours (Table) 01/08/17 01/08/17 01/08/17 Range/Units 05:45 05:45 05:45 RBC 3.63 L (4.30-5.90) m/uL Hgb 9.7 L (13.0-17.5) gm/dL Hct 32.6 L (39.0-53.0) % MCHC 29.8 L (31.0-37.0) g/dL RDW 16.6 H (11.5-15.5) % Lymphocytes # 0.9 L (1.0-4.8) k/uL Sodium 133 L (137-145) mmol/L Magnesium 1.4 L (1.6-2.3) mg/dL Microbiology - Last 24 Hours (Table) 01/06/17 14:30 Blood Culture - Preliminary Blood No Growth after 24 hours 01/06/17 14:25 Blood Culture - Preliminary Blood No Growth after 24 hours Assessment and Plan Plan: Assessment and plan #1 cardiomyopathy, ejection fraction 25-30%, likely secondary to alcohol abuse #2 chronic atrial fibrillation #3 pneumonia #4 acute on chronic systolic congestive heart failure #5 hypotension, history of hypertension Slicer Machine Operator perspective, we'll continue IV Lasix for another 24 hours. We'll continue to follow renal function. Replace magnesium. We'll continue to follow the patient and provide further recommendations accordingly. SPECIAL EDUCATION MATH TEACHER note has been reviewed, I agree with a documented findings and plan of care. Patient was seen and examined.
[2017-01-08] MEDS: MAGNESIUM SULFATE-D5W PMX 1 GM in DEXTROSE/WATER 1 100ML.BAG IVPB SCH ×3 (13:02→15:57)
--- NOTE | 2017-01-08 16:15 | P.PN ---
Subjective Progress Note Date: 01/08/17 Progress note being dictated for Dr. Benoit. Interval history: This a 56-year-old gentleman from [place], admitted with atrial fibrillation, with RVR, CHF exacerbation and and multiple other medical issues. Maintained on IV push Lasix, diuresing well with 24-hour I&O reflecting a negative fluid balance. Magnesium 1.4, receiving replacement. Echo reporting severely impaired LV function, EF 25-30%, dilated aortic root 4.2 cm. Denies chest pain, palpitations or increased shortness of breath. Telemetry atrial fibrillation, heart rates ranging 100s to 110s, up to 150 during the night. Afebrile. Objective - Vital Signs Vital signs: Vital Signs Temp 98 F 01/08/17 12:00 Pulse 111 H 01/08/17 12:00 Resp 18 01/08/17 12:00 BP 99/61 01/08/17 12:00 Pulse Ox 95 01/08/17 12:00 Intake & Output 01/07/17 01/08/17 01/08/17 18:59 06:59 18:59 Intake Total 560 1200 600 Output Total 3470 900 400 Balance -2910 300 200 Weight 102.8 kg 102.8 kg Intake: Intake, IV Titration 50 Amount cefTRIAXone 1,000 mg In 50 Sodium Chloride 0.9% 50 ml @ 100 mls/hr IVPB Q24HR [facility] Rx#:[id number] Oral 560 1200 550 Output: Urine 3470 900 400 Other: Voiding Method Urinal - Exam PHYSICAL EXAM: VITAL SIGNS: [as above] GENERAL: Sitting up in bed, no acute distress HEENT: Conjunctivae normal. eyes normal. NECK: No JVD. No thyroid enlargement. No LNs CARDIOVASCULAR: S1, S2 muffled. Irregular, proximal tachycardia, No murmur, RESPIRATION: Breath sounds diminished in the bases. Occasional rhonchi, fine bibasilar crackles. No bronchial breathing. ABDOMEN: Soft, nontender . No guarding. no masses palpable. No ascites,Bowel sounds heard. LEGS: trace edema. no swelling PSYCHIATRY: Alert and oriented -3, mood and affect normal. NERVOUS SYSTEM: Cranial N 2-12 grossly normal. Moves all 4 limbs. Diffuse weakness No focal deficits. No sensory deficit. Skin: no ulcer no rash Joints: No active swelling. No inflammation. Lymphatic system. No LN neck axilla or groin. - Labs CBC & Chem 7: 01/08/17 05:45 01/08/17 05:45 Labs: Abnormal Lab Results - Last 24 Hours (Table) 01/08/17 01/08/17 01/08/17 Range/Units 05:45 05:45 05:45 RBC 3.63 L (4.30-5.90) m/uL Hgb 9.7 L (13.0-17.5) gm/dL Hct 32.6 L (39.0-53.0) % MCHC 29.8 L (31.0-37.0) g/dL RDW 16.6 H (11.5-15.5) % Lymphocytes # 0.9 L (1.0-4.8) k/uL Sodium 133 L (137-145) mmol/L Magnesium 1.4 L (1.6-2.3) mg/dL Microbiology - Last 24 Hours (Table) 01/06/17 14:30 Blood Culture - Preliminary Blood No Growth after 24 hours 01/06/17 14:25 Blood Culture - Preliminary Blood No Growth after 24 hours Assessment and Plan Plan: 1. [ Acute on chronic CHF exacerbation, systolic dysfunction, EF 25-30%, cardiomyopathy possibly related to alcohol abuse,with possible pneumonia]. 2. [ Anemia]. 3. [ History of EtOH abuse]. 4. [ Hypertension]. 5. [ Hyperlipidemia]. 6. [ Chronic persistent atrial fibrillation]. Plan: Continue on current medication regime , empiric antibiotics, monitoring and symptomatic treatment. Maintain diuretics as per cardiology. Electrolyte supplementation as per replacement protocols. Close monitoring of electrolytes with repeat labs ordered for a.m. Preliminary blood cultures negative, continue following. The impression and plan of care has been dictated as directed. : I performed a H&P examination of this patient and discussed the same with the dictator. I agree with the dictator's note. Any additional findings/opinions/ etc. will be noted.
--- NOTE | 2017-01-08 16:44 | P.PN ---
<Chanel Marquez M - Last Filed: 01/08/17 16:23> Subjective Progress Note Date: 01/08/17 Principal diagnosis: Dyspnea, hypoxemia, heart failure This is a 56-year-old male who presented to the emergency department because of shortness of breath and apparent low blood pressure. Apparently a nurse at the [facility] that he was staying at noted that his systolic blood pressure was in the 60s and 70s. He was told to drink lots of water. Subsequently, he was also found the following day to have a low blood pressure and for that reason he was sent into the hospital. In addition, he does have some mild shortness of breath. A bit of a cough not producing any phlegm. No fever. No chills. No chest pain. Unknown history of atrial fibrillation. The patient was admitted with a diagnosis of pneumonia and sepsis and heart failure. The patient sleeping comfortably laying on his right side. Has no complaints when I first walked into the room. On 01/08/2017 patient is reevaluated. Still complains of exertional dyspnea but states it is improved today. His currently resting in bed, no signs of respiratory distress, no accessory muscle use no wheezing, no rhonchi. He is on room air With O2 saturations are 93-95%. No febrile episodes, he is somewhat tachycardic with a heart rate from 110-120 BPM. Lung sounds diminished air entry throughout. No chest wall tenderness on palpation with deep breathing. Trace peripheral edema noted. Patient continues to diuresis, he is -2610 mL fluid balance over the last 24 hours. Objective - Vital Signs Vital signs: Vital Signs Temp 98 F 01/08/17 12:00 Pulse 111 H 01/08/17 12:00 Resp 18 01/08/17 12:00 BP 99/61 01/08/17 12:00 Pulse Ox 95 01/08/17 12:00 Intake & Output 01/07/17 01/08/17 01/08/17 18:59 06:59 18:59 Intake Total 560 1200 600 Output Total 3470 900 400 Balance -2910 300 200 Weight 102.8 kg 102.8 kg Intake: Intake, IV Titration 50 Amount cefTRIAXone 1,000 mg In 50 Sodium Chloride 0.9% 50 ml @ 100 mls/hr IVPB Q24HR [facility] Rx#:[id number] Oral 560 1200 550 Output: Urine 3470 900 400 Other: Voiding Method Urinal - Constitutional General appearance: Present: average body habitus, no acute distress - EENT Eyes: Present: EOMI, PERRLA ENT: Present: NA/AT - Neck Neck: Present: normal ROM Carotids: bilateral: upstroke normal Thyroid: bilateral: normal size - Respiratory Respiratory: bilateral: diminished - Cardiovascular Heart sounds: normal: S1, S2 Abnormal Heart Sounds: Present: systolic murmur - Peripheral edema ankle Peripheral Edema: bilateral: Trace - Peripheral pulses dorsalis pedis Peripheral Pulses: bilateral: Normal - Gastrointestinal General gastrointestinal: Present: normal bowel sounds - Integumentary Integumentary: Present: normal, normal turgor - Neurologic Neurologic: Present: CNII-XII intact - Musculoskeletal Musculoskeletal: Present: strength equal bilaterally - Psychiatric Psychiatric: Present: A&O x's 3, appropriate affect, intact judgment & insight - Labs CBC & Chem 7: 01/08/17 05:45 01/08/17 05:45 Labs: Abnormal Lab Results - Last 24 Hours (Table) 01/08/17 01/08/17 01/08/17 Range/Units 05:45 05:45 05:45 RBC 3.63 L (4.30-5.90) m/uL Hgb 9.7 L (13.0-17.5) gm/dL Hct 32.6 L (39.0-53.0) % MCHC 29.8 L (31.0-37.0) g/dL RDW 16.6 H (11.5-15.5) % Lymphocytes # 0.9 L (1.0-4.8) k/uL Sodium 133 L (137-145) mmol/L Magnesium 1.4 L (1.6-2.3) mg/dL Microbiology - Last 24 Hours (Table) 01/06/17 14:30 Blood Culture - Preliminary Blood No Growth after 24 hours 01/06/17 14:25 Blood Culture - Preliminary Blood No Growth after 24 hours - Imaging and Cardiology Chest x-ray: report reviewed Assessment and Plan Plan: Assessment: #1. Acute on chronic systolic congestive heart failure. Left ventricular systolic function severely impaired with an EF between 25-30% on an echo from #2. Acute tracheobronchitis, on combination of Zithromax and Rocephin for antibiotic coverage #3. Acute hypotension, currently normotensive #4. History of hypertension #5. History of diabetes #6. History of EtOH dependence, was receiving treatment at [facility] facility #7. History of atrial fibrillation, on Xarelto Plan: Continue with IV diuretics. Accurate I&O's, daily weights Continue azithromycin and Rocephin for acute tracheobronchitis. Continue with DuoNeb nebulized treatments. Monitor electrolytes. Microbiology results have been reviewed and blood cultures show no growth after 24 hours. We will closely follow this patient with you. I performed a history & physical examination of the patient and discussed their management with my nurse practitioner, Chanel Marquez. I reviewed the nurse practitioner's note and agree with the documented findings and plan of care. <Jaimee Medrano - Last Filed: 01/08/17 17:08> Objective - Vital Signs Vital signs: Vital Signs Temp 97.8 F 01/08/17 16:00 Pulse 112 H 01/08/17 16:00 Resp 18 01/08/17 16:00 BP 100/67 01/08/17 16:00 Pulse Ox 95 01/08/17 16:00 Intake & Output 01/07/17 01/08/17 01/08/17 18:59 06:59 18:59 Intake Total 560 1200 1250 Output Total 3470 900 1000 Balance -2910 300 250 Weight 102.8 kg 102.8 kg Intake: Intake, IV Titration 50 Amount cefTRIAXone 1,000 mg In 50 Sodium Chloride 0.9% 50 ml @ 100 mls/hr IVPB Q24HR [facility] Rx#:[id number] Oral 560 1200 1200 Output: Urine 3470 900 1000 Other: Voiding Method Urinal - Labs CBC & Chem 7: 01/08/17 05:45 01/08/17 05:45 Labs: Abnormal Lab Results - Last 24 Hours (Table) 01/08/17 01/08/17 01/08/17 Range/Units 05:45 05:45 05:45 RBC 3.63 L (4.30-5.90) m/uL Hgb 9.7 L (13.0-17.5) gm/dL Hct 32.6 L (39.0-53.0) % MCHC 29.8 L (31.0-37.0) g/dL RDW 16.6 H (11.5-15.5) % Lymphocytes # 0.9 L (1.0-4.8) k/uL Sodium 133 L (137-145) mmol/L Magnesium 1.4 L (1.6-2.3) mg/dL Microbiology - Last 24 Hours (Table) 01/06/17 14:30 Blood Culture - Preliminary Blood No Growth after 48 hours 01/06/17 14:25 Blood Culture - Preliminary Blood No Growth after 48 hours Assessment and Plan Plan: This is a joint evaluation that was done with the nurse practitioner. The patient is doing well. The patient is being diuresed nicely with IV Lasix. I think is a component of acute bronchitis in addition. The patient was in [place] where he had an acute bronchitis and subsequently he went in the decompensated heart failure. He is doing well. He is able to lay down flat in bed. The chest is slightly congested and the patient has a congested cough. No signs of any delirium tremens. We'll continue to follow. Rest of the information as mentioned above by the nurse practitioner.
[2017-01-08] MEDS: IPRATROPIUM-ALBUTEROL 3 ML NEB INHALATION PRN (20:14)
[2017-01-08] MEDS: traZODone HCL 50 MG TAB PO SCH (21:37)
[2017-01-09] MEDS: POTASSIUM CHLORIDE ER 20 MEQ TAB.ER PO SCH ×2 (06:00→17:25)
[2017-01-09] MEDS: MAGNESIUM OXIDE 400 MG TAB PO SCH ×3 (06:00→20:16)
[2017-01-09] MEDS: RIVAROXABAN 10 MG TAB PO SCH (06:01)
[2017-01-09] MEDS: SPIRONOLACTONE 25 MG TAB PO SCH (06:01)
[2017-01-09 06:27] LABS: Anion Gap 8 mmol/L; Blood Urea Nitrogen 9 mg/dL (9-20); Calcium 8.8 mg/dL (8.4-10.2); Carbon Dioxide 28 mmol/L (22-30); Chloride 97 mmol/L (98-107); Glucose 81 mg/dL (74-99); Magnesium 1.8 mg/dL (1.6-2.3); Non-African American GFR(MDRD) >60 (>60 ml/min/1.73 sqM); Potassium 4.2 mmol/L (3.5-5.1); Sodium 133 mmol/L (137-145)
[2017-01-09 06:46] LABS: Anisocytosis Slight; Basophils # (A) 0.1 k/uL (0-0.2); Basophils % (A) 1 %; CH 26.4; CHCM 29.4; Eosinophils # (A) 0.5 k/uL (0-0.7); Eosinophils % (A) 8 %; HCT 36.3 % (39.0-53.0); HDW 2.67; HGB 10.7 gm/dL (13.0-17.5); Hypochromasia Marked; Luc # (Auto) 0.13; Luc % (Auto) 2; Lymphocytes # (A) 1.1 k/uL (1.0-4.8); Lymphocytes % (A) 18 %; MCH 26.6 pg (25.0-35.0); MCHC 29.5 g/dL (31.0-37.0); Mean Platelet Volume 7.1; Monocytes # (A) 0.5 k/uL (0-1.0); Monocytes % (A) 8 %; Neutrophils # (A) 3.7 k/uL (1.3-7.7); Neutrophils % (A) 63 %; RBC 4.04 m/uL (4.30-5.90); RDW 16.5 % (11.5-15.5); WBC 5.9 k/uL (3.8-10.6); WBC (Perox) 6.07
[2017-01-09] MEDS: MAGNESIUM SULFATE-D5W PMX 1 GM in DEXTROSE/WATER 1 100ML.BAG IVPB SCH ×2 (08:07→09:23)
[2017-01-09] MEDS: FUROSEMIDE 10 MG/ML 4 ML VIAL IV SCH ×2 (08:15→20:14)
[2017-01-09] MEDS: AZITHROMYCIN 500 MG TAB PO SCH (08:17)
[2017-01-09] MEDS: PANTOPRAZOLE 40 MG TABLET PO SCH (08:18)
[2017-01-09] MEDS: MULTIVITAMINS, THERA 1 EACH TAB PO SCH (08:19)
[2017-01-09] MEDS: THIAMINE 100 MG TAB PO SCH (08:19)
[2017-01-09] MEDS: IPRATROPIUM-ALBUTEROL 3 ML NEB INHALATION PRN ×2 (08:29→20:35)
--- NOTE | 2017-01-09 12:03 | P.PN ---
<Rylie Daley - Last Filed: 01/09/17 11:54> Subjective Progress Note Date: 01/09/17 Principal diagnosis: Acute exacerbation of chronic systolic congestive heart failure This is a 56-year-old male who presented to the emergency department because of shortness of breath and apparent low blood pressure. Apparently a nurse at the [facility] that he was staying at noted that his systolic blood pressure was in the 60s and 70s. He was told to drink lots of water. Subsequently, he was also found the following day to have a low blood pressure and for that reason he was sent into the hospital. In addition, he does have some mild shortness of breath. A bit of a cough not producing any phlegm. No fever. No chills. No chest pain. Unknown history of atrial fibrillation. The patient was admitted with a diagnosis of pneumonia and sepsis and heart failure. The patient sleeping comfortably laying on his right side. Has no complaints when I first walked into the room. On 01/08/2017 patient is reevaluated. Still complains of exertional dyspnea but states it is improved today. His currently resting in bed, no signs of respiratory distress, no accessory muscle use no wheezing, no rhonchi. He is on room air With O2 saturations are 93-95%. No febrile episodes, he is somewhat tachycardic with a heart rate from 110-120 BPM. Lung sounds diminished air entry throughout. No chest wall tenderness on palpation with deep breathing. Trace peripheral edema noted. Patient continues to diuresis, he is -2610 mL fluid balance over the last 24 hours. The patient is seen again today 01/09/2017 in follow-up on the selective care unit. He is awake and alert in no acute distress. He is breathing easier today as compared to yesterday. He's been maintaining good O2 saturations in the 90s on room air. He remains in a negative balance. Currently on Lasix 40 mg IV push every 12 hours. He remains on antibiotics in the form of ceftriaxone and azithromycin. He remains in atrial fibrillation with varying ventricular response. He has been initiated on Xarelto. Ejection fraction 25- 30%. Objective - Vital Signs Vital signs: Vital Signs Temp 97.1 F L 01/09/17 08:00 Pulse 88 01/09/17 08:45 Resp 16 01/09/17 08:00 BP 95/62 01/09/17 08:00 Pulse Ox 96 01/09/17 08:31 Intake & Output 01/08/17 01/09/17 01/09/17 18:59 06:59 18:59 Intake Total 1450 40 240 Output Total 1000 1800 400 Balance 450 -1760 -160 Weight 102.8 kg 101.2 kg Intake: IV 40 0.9% NS FLUSH 40 Intake, IV Titration 50 Amount cefTRIAXone 1,000 mg In 50 Sodium Chloride 0.9% 50 ml @ 100 mls/hr IVPB Q24HR [facility] Rx#:[id number] Oral 1400 240 Output: Urine 1000 1800 400 Other: # Voids 1 - Exam GENERAL EXAM: Alert, comfortable in no apparent distress. HEAD: Normocephalic. EYES: Normal reaction of pupils, equal size. NOSE: Clear with pink turbinates. THROAT: No erythema or exudates. NECK: No masses, no JVD. CHEST: No chest wall deformity. LUNGS: Equal air entry with basilar crackles. CVS: S1 and S2 normal with an audible murmur, irregular rhythm. ABDOMEN: No hepatosplenomegaly, normal bowel sounds, no guarding or rigidity. SPINE: No scoliosis or deformity SKIN: No rashes CENTRAL NERVOUS SYSTEM: No focal deficits, tone is normal in all 4 extremities. Extremities: There is trace peripheral edema. No clubbing, no cyanosis. Peripheral pulses are intact. - Labs CBC & Chem 7: 01/09/17 05:56 01/09/17 05:56 Labs: Abnormal Lab Results - Last 24 Hours (Table) 01/09/17 01/09/17 Range/Units 05:56 05:56 RBC 4.04 L (4.30-5.90) m/uL Hgb 10.7 L (13.0-17.5) gm/dL Hct 36.3 L (39.0-53.0) % MCHC 29.5 L (31.0-37.0) g/dL RDW 16.5 H (11.5-15.5) % Sodium 133 L (137-145) mmol/L Chloride 97 L (98-107) mmol/L Creatinine 0.60 L (0.66-1.25) mg/dL Microbiology - Last 24 Hours (Table) 01/06/17 14:30 Blood Culture - Preliminary Blood No Growth after 48 hours 01/06/17 14:25 Blood Culture - Preliminary Blood No Growth after 48 hours Assessment and Plan Plan: Assessment: #1. Acute on chronic systolic congestive heart failure. Left ventricular systolic function severely impaired with an EF between 25-30% on an echo from #2. Acute tracheobronchitis, on combination of Zithromax and Rocephin for antibiotic coverage #3. Acute hypotension, currently normotensive #4. History of hypertension #5. History of diabetes #6. History of EtOH dependence, [facility] #7. History of atrial fibrillation, on Xarelto Plan: The patient was seen and evaluated by Dr. Medrano. We'll continue with his current medications. He is improved today as compared to yesterday. Will have a follow-up chest x-ray regards to his congestive heart failure. We'll also continue with bronchodilators and empiric antibiotics. We will increase his activity as tolerated. We'll continue to follow. I performed a history and physical examination on the patient. Lung sounds are clear anteriorly with some faint crackles in the posterior bases. Diminished. I discussed the assessment and plan of care with my nurse practitioner, Rylie Daley. I agree with the above note as dictated. <Jaimee Medrano - Last Filed: 01/09/17 12:08> Objective - Vital Signs Vital signs: Vital Signs Temp 97.1 F L 01/09/17 08:00 Pulse 88 01/09/17 08:45 Resp 16 01/09/17 08:00 BP 95/62 01/09/17 08:00 Pulse Ox 96 01/09/17 08:31 Intake & Output 01/08/17 01/09/17 01/09/17 18:59 06:59 18:59 Intake Total 1450 40 240 Output Total 1000 1800 400 Balance 450 -1760 -160 Weight 102.8 kg 101.2 kg Intake: IV 40 0.9% NS FLUSH 40 Intake, IV Titration 50 Amount cefTRIAXone 1,000 mg In 50 Sodium Chloride 0.9% 50 ml @ 100 mls/hr IVPB Q24HR [facility] Rx#:[id number] Oral 1400 240 Output: Urine 1000 1800 400 Other: # Voids 1 - Labs CBC & Chem 7: 01/09/17 05:56 01/09/17 05:56 Labs: Abnormal Lab Results - Last 24 Hours (Table) 01/09/17 01/09/17 Range/Units 05:56 05:56 RBC 4.04 L (4.30-5.90) m/uL Hgb 10.7 L (13.0-17.5) gm/dL Hct 36.3 L (39.0-53.0) % MCHC 29.5 L (31.0-37.0) g/dL RDW 16.5 H (11.5-15.5) % Sodium 133 L (137-145) mmol/L Chloride 97 L (98-107) mmol/L Creatinine 0.60 L (0.66-1.25) mg/dL Microbiology - Last 24 Hours (Table) 01/06/17 14:30 Blood Culture - Preliminary Blood No Growth after 48 hours 01/06/17 14:25 Blood Culture - Preliminary Blood No Growth after 48 hours Assessment and Plan Plan: The patient was seen today in the presence of the nurse practitioner. This is a joint evaluation. I attest to the information mentioned above. I noted the patient is recovering from his acute CHF exacerbation. He also has a course of antibiotics for an underlying tracheal bronchitis. He was asked to ablate further. My plan is to stabilize his condition and sent this patient back to [place] for further rehabilitation regarding his chronic alcoholism. We' ll continue to follow.
--- NOTE | 2017-01-09 12:22 | XR ---
EXAMINATION TYPE: XR chest 1V portable DATE OF EXAM: 01/09/2017 HISTORY: Shortness of breath. COMPARISON: January 07, 2017 TECHNIQUE: Single view of the chest is submitted. FINDINGS: Demonstrated are scattered senescent parenchymal change. There is no evidence for focal infiltrate. The heart is enlarged. No evidence for overt failure at this time. Persistent bilateral pleural effus ions. Hilar and mediastinal structures are within normal limits. Degenerative changes are seen of the dorsal spine. IMPRESSION: 1. No evidence for overt failure at this time. Persistent bilateral pleural effusions.
--- NOTE | 2017-01-09 15:30 | P.PN ---
Subjective Progress Note Date: 01/09/17 Principal diagnosis: Pneumonia and sepsis This is a pleasant 56-year-old gentleman with a history of chronic atrial fibrillation, cardiomyopathy and alcoholism. Presented from [place] after he was noted to have low blood pressure. Patient apparently lives in the [facility] and has been admitted or so ago with congestive heart failure and atrial fibrillation, according to him ejection fraction at that time was 25-30% . He was anticoagulated at that time and it was felt according to him that the etiology of his cardiomyopathy was alcoholism. He has been drinking quite heavily since the of his . Repeat 2-D echo with Doppler this admission shows an ejection fraction of 25-30%, consistent with history. He apparently had a stress test about a year ago that was negative for ischemia. Upon examination, patient is resting comfortably in bed. He continues to complain of a cough, productive. He denies any complaints of PND or orthopnea, has no chest discomfort, dizziness or palpitations. He does complain of chronic peripheral edema. Objective - Vital Signs Vital signs: Vital Signs Temp 98.0 F 01/09/17 12:00 Pulse 91 01/09/17 13:56 Resp 16 01/09/17 12:00 BP 83/50 01/09/17 13:56 Pulse Ox 96 01/09/17 12:00 Intake & Output 01/08/17 01/09/17 01/09/17 18:59 06:59 18:59 Intake Total 1450 40 480 Output Total 1000 1800 400 Balance 450 -1760 80 Weight 102.8 kg 101.2 kg Intake: IV 40 0.9% NS FLUSH 40 Intake, IV Titration 50 Amount cefTRIAXone 1,000 mg In 50 Sodium Chloride 0.9% 50 ml @ 100 mls/hr IVPB Q24HR [facility] Rx#:[id number] Oral 1400 480 Output: Urine 1000 1800 400 Other: # Voids 1 2 # Bowel Movements 0 - Exam PHYSICAL EXAMINATION: HEENT: Head is atraumatic, normocephalic. Pupils equal, round. Neck is supple. There is no elevated jugular venous pressure. HEART EXAMINATION: Heart sounds irregularly irregular, S1 and S2 normal. No murmur or gallop heard. CHEST EXAMINATION: Lungs reveal diminished air entry throughout with scattered coarse rhonchi. No chest wall tenderness is noted on palpation or with deep breathing. ABDOMEN: Soft, nontender. Bowel sounds are heard. No organomegaly noted. EXTREMITIES: 2+ peripheral pulses with evidence of trace peripheral edema and no calf tenderness noted. NEUROLOGIC patient is awake, alert and oriented x3. - Labs CBC & Chem 7: 01/09/17 05:56 01/09/17 05:56 Labs: Abnormal Lab Results - Last 24 Hours (Table) 01/09/17 01/09/17 Range/Units 05:56 05:56 RBC 4.04 L (4.30-5.90) m/uL Hgb 10.7 L (13.0-17.5) gm/dL Hct 36.3 L (39.0-53.0) % MCHC 29.5 L (31.0-37.0) g/dL RDW 16.5 H (11.5-15.5) % Sodium 133 L (137-145) mmol/L Chloride 97 L (98-107) mmol/L Creatinine 0.60 L (0.66-1.25) mg/dL Microbiology - Last 24 Hours (Table) 01/06/17 14:30 Blood Culture - Preliminary Blood No Growth after 48 hours 01/06/17 14:25 Blood Culture - Preliminary Blood No Growth after 48 hours Assessment and Plan Plan: Assessment and Plan Plan: Assessment and plan #1 cardiomyopathy, ejection fraction 25-30%, likely secondary to alcohol abuse #2 chronic atrial fibrillation #3 pneumonia #4 acute on chronic systolic congestive heart failure #5 hypotension, history of hypertension Cardiology's perspective, we'll continue the IV Lasix for another 24 hours, check lytes BUN and creatinine in the morning. DNP note has been reviewed, I agree with a documented findings and plan of care. Patient was seen and examined.
[2017-01-09] MEDS: traZODone HCL 50 MG TAB PO SCH (22:59)
[2017-01-10] MEDS: SPIRONOLACTONE 25 MG TAB PO SCH ×2 (05:41→08:33)
[2017-01-10] MEDS: RIVAROXABAN 10 MG TAB PO SCH (05:46)
[2017-01-10] MEDS: MAGNESIUM OXIDE 400 MG TAB PO SCH ×3 (05:46→20:28)
[2017-01-10] MEDS: POTASSIUM CHLORIDE ER 20 MEQ TAB.ER PO SCH ×2 (05:46→16:11)
[2017-01-10] MEDS: guaiFENesin SYRUP 100MG/5ML 200 MG/10 ML CUP PO PRN ×2 (05:53→20:26)
[2017-01-10 05:57] LABS: Anisocytosis Slight; Basophils % (A) 1 %; CH 26.6; CHCM 29.9; Eosinophils # (A) 0.5 k/uL (0-0.7); Eosinophils % (A) 9 %; HCT 34.3 % (39.0-53.0); HDW 2.67; HGB 10.3 gm/dL (13.0-17.5); Hypochromasia Marked; Luc # (Auto) 0.15; Luc % (Auto) 3; Lymphocytes % (A) 17 %; MCH 26.9 pg (25.0-35.0); MCHC 30.1 g/dL (31.0-37.0); MCV 89.3 fL (80.0-100.0); Mean Platelet Volume 7.1; Monocytes # (A) 0.4 k/uL (0-1.0); Monocytes % (A) 8 %; Neutrophils # (A) 3.6 k/uL (1.3-7.7); Neutrophils % (A) 63 %; RBC 3.85 m/uL (4.30-5.90); RDW 16.6 % (11.5-15.5); WBC 5.7 k/uL (3.8-10.6); WBC (Perox) 6.27
[2017-01-10 06:06] LABS: Anion Gap 8 mmol/L; Blood Urea Nitrogen 10 mg/dL (9-20); Calcium 8.9 mg/dL (8.4-10.2); Carbon Dioxide 26 mmol/L (22-30); Chloride 99 mmol/L (98-107); Glucose 82 mg/dL (74-99); Magnesium 1.7 mg/dL (1.6-2.3); Non-African American GFR(MDRD) >60 (>60 ml/min/1.73 sqM); Potassium 4.5 mmol/L (3.5-5.1); Sodium 133 mmol/L (137-145)
--- NOTE | 2017-01-10 08:11 | PN ---
PROGRESS NOTE Mr. Zamarripa is a 56-year-old male with a known history of nonischemic cardiomyopathy, history of chronic atrial fibrillation, history of alcoholism who presented with dizziness and symptoms of congestive heart failure. He is feeling better today. His breathing is stable. He is denying any chest pain. No dizziness or palpitation. He denies any nausea. He has not had any dizziness with ambulation. He continued to be on Lasix 40 mg IV q.12 hours, azithromycin, ceftriaxone, Xarelto 20 mg daily and spironolactone 50 mg daily. PHYSICAL EXAMINATION: Blood pressure running in the 90s to the low 100s with a heart rate in the 90s to 100s. LUNGS: Clear. HEART: Irregular, irregular S1, S2. No S3. No rub. ABDOMEN: Soft, nontender. EXTREMITIES: With chronic discoloration and no edema. LAB DATA: Lab data revealed a hemoglobin of 10.3. BUN and creatinine of 10 and 0.63. Potassium 4.5. His magnesium is 1.7. IMPRESSION: 1. Evidence of severe cardiomyopathy, nonischemic in the past. 2. Chronic atrial fibrillation. 3. Alcoholism. 4. Hypotension, stable. RECOMMENDATION: I will switch him to oral diuretic. I will add a low dose of beta alfredo. Increase his level of activity. MMODL / IJN: [id number] /
[2017-01-10] MEDS: MAGNESIUM SULFATE-D5W PMX 1 GM in DEXTROSE/WATER 1 100ML.BAG IVPB SCH ×2 (08:30→09:46)
[2017-01-10] MEDS: METOPROLOL TARTRATE 25 MG TAB PO SCH ×2 (08:31→20:26)
[2017-01-10] MEDS: AZITHROMYCIN 500 MG TAB PO SCH (08:32)
[2017-01-10] MEDS: PANTOPRAZOLE 40 MG TABLET PO SCH (08:32)
[2017-01-10] MEDS: MULTIVITAMINS, THERA 1 EACH TAB PO SCH (08:33)
[2017-01-10] MEDS: THIAMINE 100 MG TAB PO SCH (08:34)
[2017-01-10] MEDS ORDERED: FUROSEMIDE 20 MG TAB PO SCH (09:00)
[2017-01-10] MEDS: IPRATROPIUM-ALBUTEROL 3 ML NEB INHALATION PRN (10:36)
--- NOTE | 2017-01-10 11:21 | P.PN ---
<Rylie Daley - Last Filed: 01/10/17 11:16> Subjective Progress Note Date: 01/10/17 Principal diagnosis: Acute exacerbation of chronic systolic congestive heart failure This is a 56-year-old male who presented to the emergency department because of shortness of breath and apparent low blood pressure. Apparently a nurse at the [facility] that he was staying at noted that his systolic blood pressure was in the 60s and 70s. He was told to drink lots of water. Subsequently, he was also found the following day to have a low blood pressure and for that reason he was sent into the hospital. In addition, he does have some mild shortness of breath. A bit of a cough not producing any phlegm. No fever. No chills. No chest pain. Unknown history of atrial fibrillation. The patient was admitted with a diagnosis of pneumonia and sepsis and heart failure. The patient sleeping comfortably laying on his right side. Has no complaints when I first walked into the room. On 01/08/2017 patient is reevaluated. Still complains of exertional dyspnea but states it is improved today. His currently resting in bed, no signs of respiratory distress, no accessory muscle use no wheezing, no rhonchi. He is on room air With O2 saturations are 93-95%. No febrile episodes, he is somewhat tachycardic with a heart rate from 110-120 BPM. Lung sounds diminished air entry throughout. No chest wall tenderness on palpation with deep breathing. Trace peripheral edema noted. Patient continues to diuresis, he is -2610 mL fluid balance over the last 24 hours. The patient is seen again today 01/09/2017 in follow-up on the selective care unit. He is awake and alert in no acute distress. He is breathing easier today as compared to yesterday. He's been maintaining good O2 saturations in the 90s on room air. He remains in a negative balance. Currently on Lasix 40 mg IV push every 12 hours. He remains on antibiotics in the form of ceftriaxone and azithromycin. He remains in atrial fibrillation with varying ventricular response. He has been on Xarelto. Ejection fraction 25-30%. The patient is seen again today 01/10/2017 in follow-up on the selective care unit. He is currently resting quite comfortably in bed. He is awake and alert in no acute distress. He denies any worsening shortness of breath, cough or congestion. He is nearly back to his baseline. Chest x-ray shows no evidence of overt heart failure. There is persistent small bilateral pleural effusions. He is maintaining good O2 saturations in the upper 90s on room air. He is afebrile. The cultures revealed no growth. No leukocytosis. Hemoglobin stable 10.3. Creatinine 0.63. He is on oral diuretics. His been initiated on beta blockers for some tachycardia arrhythmias secondary to atrial fibrillation with a rapid ventricular response. He remains anticoagulated on Xarelto. Objective - Vital Signs Vital signs: Vital Signs Temp 97.5 F L 01/10/17 08:00 Pulse 92 01/10/17 10:52 Resp 16 01/10/17 08:00 BP 97/64 01/10/17 08:00 Pulse Ox 96 01/10/17 08:00 Intake & Output 01/09/17 01/10/17 01/10/17 18:59 06:59 18:59 Intake Total 730 30 240 Output Total 700 1500 Balance 30 -1470 240 Weight 100.6 kg Intake: IV 10 30 0.9% NS FLUSH 10 30 Oral 720 240 Output: Urine 700 1500 Other: # Voids 2 2 0 # Bowel Movements 0 - Exam GENERAL EXAM: Alert, comfortable in no apparent distress. HEAD: Normocephalic. EYES: Normal reaction of pupils, equal size. NOSE: Clear with pink turbinates. THROAT: No erythema or exudates. NECK: No masses, no JVD. CHEST: No chest wall deformity. LUNGS: Equal air entry with basilar crackles. CVS: S1 and S2 normal with an audible murmur, irregular rhythm. ABDOMEN: No hepatosplenomegaly, normal bowel sounds, no guarding or rigidity. SPINE: No scoliosis or deformity SKIN: No rashes CENTRAL NERVOUS SYSTEM: No focal deficits, tone is normal in all 4 extremities. Extremities: There is trace peripheral edema. No clubbing, no cyanosis. Peripheral pulses are intact. - Labs CBC & Chem 7: 01/10/17 05:33 01/10/17 05:33 Labs: Abnormal Lab Results - Last 24 Hours (Table) 01/10/17 01/10/17 Range/Units 05:33 05:33 RBC 3.85 L (4.30-5.90) m/uL Hgb 10.3 L (13.0-17.5) gm/dL Hct 34.3 L (39.0-53.0) % MCHC 30.1 L (31.0-37.0) g/dL RDW 16.6 H (11.5-15.5) % Sodium 133 L (137-145) mmol/L Creatinine 0.63 L (0.66-1.25) mg/dL Microbiology - Last 24 Hours (Table) 01/06/17 14:30 Blood Culture - Preliminary Blood No Growth after 72 hours 01/06/17 14:25 Blood Culture - Preliminary Blood No Growth after 72 hours Assessment and Plan Plan: Assessment: #1. Acute on chronic exacerbation of systolic congestive heart failure. Left ventricular systolic function severely impaired with an EF between 25-30% on an echo from 01/08/2017 #2. Acute tracheobronchitis, on combination of Zithromax and Rocephin for antibiotic coverage #3. Acute hypotension, currently normotensive #4. History of hypertension #5. History of diabetes #6. History of EtOH dependence, was receiving treatment at [facility] #7. History of atrial fibrillation, on Xarelto Plan: The patient was seen and evaluated by Dr. Medrano. His chest x-ray and labs were reviewed. We'll continue with his current medications. He is improved today as compared to yesterday. We'll also continue with bronchodilators and empiric antibiotics. We will increase his activity as tolerated. He is cleared for discharge from the pulmonary standpoint. The plan is to transfer back to [facility] [place]. I performed a history and physical examination on the patient. Lung sounds are clear anteriorly with some faint crackles in the posterior bases. Diminished. I discussed the assessment and plan of care with my nurse practitioner, Rylie Daley. I agree with the above note as dictated. <Jaimee Medrano - Last Filed: 01/10/17 11:27> Objective - Vital Signs Vital signs: Vital Signs Temp 97.5 F L 01/10/17 08:00 Pulse 92 01/10/17 10:52 Resp 16 01/10/17 08:00 BP 97/64 01/10/17 08:00 Pulse Ox 96 01/10/17 08:00 Intake & Output 01/09/17 01/10/17 01/10/17 18:59 06:59 18:59 Intake Total 730 30 240 Output Total 700 1500 Balance 30 -1470 240 Weight 100.6 kg Intake: IV 10 30 0.9% NS FLUSH 10 30 Oral 720 240 Output: Urine 700 1500 Other: # Voids 2 2 0 # Bowel Movements 0 - Labs CBC & Chem 7: 01/10/17 05:33 01/10/17 05:33 Labs: Abnormal Lab Results - Last 24 Hours (Table) 01/10/17 01/10/17 Range/Units 05:33 05:33 RBC 3.85 L (4.30-5.90) m/uL Hgb 10.3 L (13.0-17.5) gm/dL Hct 34.3 L (39.0-53.0) % MCHC 30.1 L (31.0-37.0) g/dL RDW 16.6 H (11.5-15.5) % Sodium 133 L (137-145) mmol/L Creatinine 0.63 L (0.66-1.25) mg/dL Microbiology - Last 24 Hours (Table) 01/06/17 14:30 Blood Culture - Preliminary Blood No Growth after 72 hours 01/06/17 14:25 Blood Culture - Preliminary Blood No Growth after 72 hours Assessment and Plan Plan: This is a joint evaluation that was done along with a nurse practitioner. The patient's acute bronchitis has subsided. The patient's CHF has also subsided. He has an EF around 25-30%. He is also in atrial fibrillation. He is on anticoagulation. Asked the patient to ablate in the hallway. Ultimately plan is to discharge this patient back to [facility] if he has any reserved spot for alcohol rehabilitation.
[2017-01-10] MEDS: FUROSEMIDE 20 MG TAB PO SCH (16:11)
--- NOTE | 2017-01-10 17:38 | P.PN ---
Subjective Progress Note Date: 01/09/17 Progress note being dictated for Dr. Balbuena 01/08/2017 Interval history: This a 56-year-old gentleman from [place], admitted with atrial fibrillation, with RVR, CHF exacerbation and and multiple other medical issues. Maintained on IV push Lasix, diuresing well with 24-hour I&O reflecting a negative fluid balance. Magnesium 1.4, receiving replacement. Echo reporting severely impaired LV function, EF 25-30%, dilated aortic root 4.2 cm. Denies chest pain, palpitations or increased shortness of breath. Telemetry atrial fibrillation, heart rates ranging 100s to 110s, up to 150 during the night. Afebrile. 01/09/2017 maintained on Rocephin and azithromycin. Anticoagulated on Xarelto. remains in atrial fibrillation, with heart rates up into the 130s, hypotensive with systolic blood pressures in the mid 80s, asymptomatic. Sodium 133. Maintained on Lasix IV push, diuresing well with 24-hour I&O reflecting a negative fluid balance. Chest x-ray reporting persistent bilateral pleural effusions without overt failure at this time. Objective - Vital Signs Vital signs: Vital Signs Temp 98.3 F 01/09/17 15:54 Pulse 117 H 01/09/17 15:54 Resp 18 01/09/17 15:54 BP 92/58 01/09/17 15:54 Pulse Ox 97 01/09/17 15:54 Intake & Output 01/08/17 01/09/17 01/09/17 18:59 06:59 18:59 Intake Total 1450 40 730 Output Total 1000 1800 700 Balance 450 -1760 30 Weight 102.8 kg 101.2 kg Intake: IV 40 10 0.9% NS FLUSH 40 10 Intake, IV Titration 50 Amount cefTRIAXone 1,000 mg In 50 Sodium Chloride 0.9% 50 ml @ 100 mls/hr IVPB Q24HR [facility] Rx#:[id number] Oral 1400 720 Output: Urine 1000 1800 700 Other: # Voids 1 2 # Bowel Movements 0 - Exam PHYSICAL EXAM: VITAL SIGNS: [as above] GENERAL: Sitting up in bed, no acute distress HEENT: Conjunctivae normal. eyes normal. Oral mucosa moist NECK: No JVD. No thyroid enlargement. No LNs CARDIOVASCULAR: Positive S1, S2, Irregular, tachycardic, positive systolic murmur, RESPIRATION: Breath sounds diminished in the bases. Occasional rhonchi, fine bibasilar crackles. No bronchial breathing. ABDOMEN: Soft, nontender . No guarding. no masses palpable. No ascites,Bowel sounds heard. LEGS: trace edema. no swelling PSYCHIATRY: Alert and oriented -3, mood and affect normal. NERVOUS SYSTEM: Cranial N 2-12 grossly normal. Moves all 4 limbs. Diffuse weakness No focal deficits. No sensory deficit. Skin: no ulcer no rash Joints: No active swelling. No inflammation. Lymphatic system. No LN neck axilla or groin. - Labs CBC & Chem 7: 01/10/17 05:33 01/10/17 05:33 Labs: Abnormal Lab Results - Last 24 Hours (Table) 01/09/17 01/09/17 Range/Units 05:56 05:56 RBC 4.04 L (4.30-5.90) m/uL Hgb 10.7 L (13.0-17.5) gm/dL Hct 36.3 L (39.0-53.0) % MCHC 29.5 L (31.0-37.0) g/dL RDW 16.5 H (11.5-15.5) % Sodium 133 L (137-145) mmol/L Chloride 97 L (98-107) mmol/L Creatinine 0.60 L (0.66-1.25) mg/dL Microbiology - Last 24 Hours (Table) 01/06/17 14:30 Blood Culture - Preliminary Blood No Growth after 72 hours 01/06/17 14:25 Blood Culture - Preliminary Blood No Growth after 72 hours Assessment and Plan Plan: 1. [ Acute on chronic CHF exacerbation, systolic dysfunction, EF 25-30%, cardiomyopathy possibly related to alcohol abuse,with possible pneumonia with acute tracheobronchitis]. 2. [ Anemia]. 3. [ History of EtOH abuse]. 4. [ Hypertension, currently with acute hypotension]. 5. [ Hyperlipidemia]. 6. [ Chronic persistent atrial fibrillation]. Plan: Continue on current medication regime , nebulized bronchodilators, empiric antibiotics, monitoring and symptomatic treatment. Maintain Lasix IV push another day as per cardiology. Close monitoring of electrolytes with repeat labs ordered for a.m. Preliminary blood cultures negative, continue following. The impression and plan of care has been dictated as directed. : I performed a H&P examination of this patient and discussed the same with the dictator. I agree with the dictator's note. Any additional findings/opinions/ etc. will be noted.
--- NOTE | 2017-01-10 17:46 | P.PN ---
Subjective Progress note being dictated for Dr. Mccann 01/08/2017 Interval history: This a 56-year-old gentleman from [place], admitted with atrial fibrillation, with RVR, CHF exacerbation and and multiple other medical issues. Maintained on IV push Lasix, diuresing well with 24-hour I&O reflecting a negative fluid balance. Magnesium 1.4, receiving replacement. Echo reporting severely impaired LV function, EF 25-30%, dilated aortic root 4.2 cm. Denies chest pain, palpitations or increased shortness of breath. Telemetry atrial fibrillation, heart rates ranging 100s to 110s, up to 150 during the night. Afebrile. 01/09/2017 maintained on Rocephin and azithromycin. Anticoagulated on Xarelto. remains in atrial fibrillation, with heart rates up into the 130s, hypotensive with systolic blood pressures in the mid 80s, asymptomatic. Sodium 133. Maintained on Lasix IV push, diuresing well with 24-hour I&O reflecting a negative fluid balance. Chest x-ray reporting persistent bilateral pleural effusions without overt failure at this time. 01/10/17 remains in atrial fibrillation, last night heart rate up as high as 180s. Low-dose Beta alfredo initiated this morning. Lasix IV push converted to oral. Diuresing well with 24-hour I&O reflecting a negative fluid balance. Breathing improving. Afebrile. Denies chest pain, palpitations. Objective - Vital Signs Vital signs: Vital Signs Temp 98.2 F 01/10/17 16:00 Pulse 96 01/10/17 16:00 Resp 18 01/10/17 16:00 BP 93/62 01/10/17 16:00 Pulse Ox 95 01/10/17 16:00 Intake & Output 01/09/17 01/10/17 01/10/17 18:59 06:59 18:59 Intake Total 730 30 240 Output Total 700 1500 300 Balance 30 -1470 -60 Weight 100.6 kg Intake: IV 10 30 0.9% NS FLUSH 10 30 Oral 720 240 Output: Urine 700 1500 300 Other: # Voids 2 2 0 # Bowel Movements 0 - Exam PHYSICAL EXAM: VITAL SIGNS: [as above] GENERAL: Sitting up in a chair, no acute distress HEENT: Conjunctivae normal. eyes normal. Oral mucosa moist NECK: No JVD. No thyroid enlargement. No LNs CARDIOVASCULAR: Positive S1, S2, Irregular, tachycardic, positive systolic murmur, RESPIRATION: Breath sounds diminished in the bases. Occasional rhonchi, fine bibasilar crackles. No bronchial breathing. ABDOMEN: Soft, nontender . No guarding. no masses palpable. No ascites,Bowel sounds heard. LEGS: trace edema. no swelling PSYCHIATRY: Alert and oriented -3, mood and affect normal. NERVOUS SYSTEM: Cranial N 2-12 grossly normal. Moves all 4 limbs. Diffuse weakness No focal deficits. No sensory deficit. Skin: no ulcer no rash Joints: No active swelling. No inflammation. Lymphatic system. No LN neck axilla or groin. - Labs CBC & Chem 7: 01/10/17 05:33 01/10/17 05:33 Labs: Abnormal Lab Results - Last 24 Hours (Table) 01/10/17 01/10/17 Range/Units 05:33 05:33 RBC 3.85 L (4.30-5.90) m/uL Hgb 10.3 L (13.0-17.5) gm/dL Hct 34.3 L (39.0-53.0) % MCHC 30.1 L (31.0-37.0) g/dL RDW 16.6 H (11.5-15.5) % Sodium 133 L (137-145) mmol/L Creatinine 0.63 L (0.66-1.25) mg/dL Microbiology - Last 24 Hours (Table) 01/06/17 14:30 Blood Culture - Preliminary Blood No Growth after 96 hours 01/06/17 14:25 Blood Culture - Preliminary Blood No Growth after 96 hours Assessment and Plan Plan: 1. [ Acute on chronic CHF exacerbation, systolic dysfunction, EF 25-30%, cardiomyopathy possibly related to alcohol abuse,with possible pneumonia with acute tracheobronchitis]. 2. [ Anemia]. 3. [ History of EtOH abuse]. 4. [ Hypertension, currently with acute hypotension]. 5. [ Hyperlipidemia]. 6. [ Chronic persistent atrial fibrillation]. Plan: Continue on current medication regime , nebulized bronchodilators, empiric antibiotics, monitoring and symptomatic treatment.Addition of beta alfredo and conversion to oral diuretic, continue monitoring overnight. Discharge planning in progress for tomorrow; pending cardiology clearance. The impression and plan of care has been dictated as directed. : I performed a H&P examination of this patient and discussed the same with the dictator. I agree with the dictator's note. Any additional findings/opinions/ etc. will be noted.
[2017-01-10] MEDS: traZODone HCL 50 MG TAB PO SCH (20:26)
[2017-01-10] MEDS ORDERED: INSULIN GLARGINE 100 UNIT/ML 10 ML VIAL SQ SCH (21:00)
[2017-01-10] MEDS: diphenhydrAMINE 25 MG CAP PO PRN (21:33)
[2017-01-11] MEDS: POTASSIUM CHLORIDE ER 20 MEQ TAB.ER PO SCH ×2 (06:10→16:43)
[2017-01-11] MEDS: guaiFENesin SYRUP 100MG/5ML 200 MG/10 ML CUP PO PRN (06:10)
[2017-01-11] MEDS: MAGNESIUM OXIDE 400 MG TAB PO SCH ×3 (06:10→20:17)
[2017-01-11] MEDS: RIVAROXABAN 10 MG TAB PO SCH (06:10)
[2017-01-11 06:49] LABS: Anisocytosis Slight; Basophils # (A) 0.1 k/uL (0-0.2); Basophils % (A) 1 %; CH 26.3; CHCM 29.6; Eosinophils # (A) 0.6 k/uL (0-0.7); Eosinophils % (A) 10 %; HCT 36.8 % (39.0-53.0); HDW 2.66; HGB 10.8 gm/dL (13.0-17.5); Hypochromasia Marked; Luc # (Auto) 0.14; Luc % (Auto) 3; Lymphocytes % (A) 18 %; MCH 26.1 pg (25.0-35.0); MCHC 29.3 g/dL (31.0-37.0); Monocytes # (A) 0.4 k/uL (0-1.0); Monocytes % (A) 8 %; Neutrophils # (A) 3.4 k/uL (1.3-7.7); Neutrophils % (A) 60 %; RBC 4.14 m/uL (4.30-5.90); RDW 16.3 % (11.5-15.5); WBC 5.6 k/uL (3.8-10.6); WBC (Perox) 6.01
[2017-01-11 07:01] LABS: Anion Gap 8 mmol/L; Blood Urea Nitrogen 12 mg/dL (9-20); Carbon Dioxide 24 mmol/L (22-30); Chloride 100 mmol/L (98-107); Cholesterol 131 mg/dL (<200); Glucose 81 mg/dL (74-99); HDL Cholesterol 31 mg/dL (40-60); Magnesium 1.8 mg/dL (1.6-2.3); Non-African American GFR(MDRD) >60 (>60 ml/min/1.73 sqM); Sodium 132 mmol/L (137-145)
[2017-01-11] MEDS: FUROSEMIDE 20 MG TAB PO SCH ×2 (08:52→14:57)
[2017-01-11] MEDS: METOPROLOL TARTRATE 25 MG TAB PO SCH ×2 (08:52→20:17)
[2017-01-11] MEDS: AZITHROMYCIN 500 MG TAB PO SCH (08:52)
[2017-01-11] MEDS: SPIRONOLACTONE 25 MG TAB PO SCH (08:53)
[2017-01-11] MEDS: PANTOPRAZOLE 40 MG TABLET PO SCH (08:53)
[2017-01-11 11:24] VITALS: BMI 30.9
[2017-01-11] MEDS: THIAMINE 100 MG TAB PO SCH (11:40)
--- NOTE | 2017-01-11 12:00 | P.PN ---
Subjective Progress Note Date: 01/11/17 This is a 56-year-old male who presented to the emergency department because of shortness of breath and apparent low blood pressure. Apparently a nurse at the [facility] that he was staying at noted that his systolic blood pressure was in the 60s and 70s. He was told to drink lots of water. Subsequently, he was also found the following day to have a low blood pressure and for that reason he was sent into the hospital. In addition, he does have some mild shortness of breath. A bit of a cough not producing any phlegm. No fever. No chills. No chest pain. Unknown history of atrial fibrillation. The patient was admitted with a diagnosis of pneumonia and sepsis and heart failure. The patient sleeping comfortably laying on his right side. Has no complaints when I first walked into the room. On 01/08/2017 patient is reevaluated. Still complains of exertional dyspnea but states it is improved today. His currently resting in bed, no signs of respiratory distress, no accessory muscle use no wheezing, no rhonchi. He is on room air With O2 saturations are 93-95%. No febrile episodes, he is somewhat tachycardic with a heart rate from 110-120 BPM. Lung sounds diminished air entry throughout. No chest wall tenderness on palpation with deep breathing. Trace peripheral edema noted. Patient continues to diuresis, he is -2610 mL fluid balance over the last 24 hours. The patient is seen again today 01/09/2017 in follow-up on the selective care unit. He is awake and alert in no acute distress. He is breathing easier today as compared to yesterday. He's been maintaining good O2 saturations in the 90s on room air. He remains in a negative balance. Currently on Lasix 40 mg IV push every 12 hours. He remains on antibiotics in the form of ceftriaxone and azithromycin. He remains in atrial fibrillation with varying ventricular response. He has been on Xarelto. Ejection fraction 25-30%. The patient is seen again today 01/10/2017 in follow-up on the selective care unit. He is currently resting quite comfortably in bed. He is awake and alert in no acute distress. He denies any worsening shortness of breath, cough or congestion. He is nearly back to his baseline. Chest x-ray shows no evidence of overt heart failure. There is persistent small bilateral pleural effusions. He is maintaining good O2 saturations in the upper 90s on room air. He is afebrile. The cultures revealed no growth. No leukocytosis. Hemoglobin stable 10.3. Creatinine 0.63. He is on oral diuretics. His been initiated on beta blockers for some tachycardia arrhythmias secondary to atrial fibrillation with a rapid ventricular response. He remains anticoagulated on Xarelto. On 01/11/2017 the patient is being seen in follow-up. No active pulmonary issues. The patient is having some issues with tachycardia in relation with his atrial fibrillation. Cardiology requested the patient's stay in the hospital for another 24 hours. Meanwhile readings are being made for this patient ultimately go back to [place] for further rehabilitation. He denied it of ventilation with Xarelto. He has no new complaints otherwise. Note that the patient was restarted back on his beta blockers and currently is on metoprolol 25 mg by mouth twice a day. There is being utilized for rate control. His blood pressure is holding knowing that the metoprolol was started at a lower dose. Objective - Vital Signs Vital signs: Vital Signs Temp 99.1 F 01/11/17 11:37 Pulse 87 01/11/17 11:37 Resp 16 01/11/17 11:37 BP 78/51 01/11/17 11:37 Pulse Ox 95 01/11/17 11:37 Intake & Output 01/10/17 01/11/17 01/11/17 18:59 06:59 18:59 Intake Total 720 360 240 Output Total 300 250 Balance 420 110 240 Weight 100.7 kg 100.7 kg Intake: Oral 720 360 240 Output: Urine 300 250 Other: # Voids 0 1 1 - Exam GENERAL EXAM: Alert, comfortable in no apparent distress. HEAD: Normocephalic. EYES: Normal reaction of pupils, equal size. NOSE: Clear with pink turbinates. THROAT: No erythema or exudates. NECK: No masses, no JVD. CHEST: No chest wall deformity. LUNGS: Equal air entry with basilar crackles. CVS: S1 and S2 normal with an audible murmur, irregular rhythm. ABDOMEN: No hepatosplenomegaly, normal bowel sounds, no guarding or rigidity. SPINE: No scoliosis or deformity SKIN: No rashes CENTRAL NERVOUS SYSTEM: No focal deficits, tone is normal in all 4 extremities. Extremities: There is trace peripheral edema. No clubbing, no cyanosis. Peripheral pulses are intact. - Labs CBC & Chem 7: 01/11/17 06:34 01/11/17 06:31 Labs: Abnormal Lab Results - Last 24 Hours (Table) 01/11/17 01/11/17 Range/Units 06:31 06:34 RBC 4.14 L (4.30-5.90) m/uL Hgb 10.8 L (13.0-17.5) gm/dL Hct 36.8 L (39.0-53.0) % MCHC 29.3 L (31.0-37.0) g/dL RDW 16.3 H (11.5-15.5) % Sodium 132 L (137-145) mmol/L Creatinine 0.65 L (0.66-1.25) mg/dL HDL Cholesterol 31 L (40-60) mg/dL Microbiology - Last 24 Hours (Table) 01/10/17 10:30 Gram Stain - Preliminary Sputum Sputum Culture - Preliminary 01/06/17 14:30 Blood Culture - Preliminary Blood No Growth after 96 hours 01/06/17 14:25 Blood Culture - Preliminary Blood No Growth after 96 hours Assessment and Plan Plan: Assessment: #1. Acute on chronic exacerbation of systolic congestive heart failure. Left ventricular systolic function severely impaired with an EF between 25-30% on an echo from 01/08/2017 #2. Acute tracheobronchitis, on combination of Zithromax and Rocephin for antibiotic coverage #3. Acute hypotension, currently normotensive #4. History of hypertension #5. History of diabetes #6. History of EtOH dependence, [facility] #7. History of atrial fibrillation, on Xarelto Plan: No active pulmonary issues. The ongoing problem is his tachycardia and lower blood pressure. The metoprolol dose is being regulated by cardiology. He is currently on 25 mg by mouth twice a day. Monitor the heart rate. Monitor blood pressure. Continue anticoagulation. Completed the course of Zithromax. Stop the DuoNeb nebulized treatments which could be potentially contributing to his heart rate and tachycardia. We'll follow.
--- NOTE | 2017-01-11 14:58 | P.PN ---
Subjective Progress Note Date: 01/11/17 Principal diagnosis: Pneumonia and sepsis This is a pleasant 56-year-old gentleman with a history of chronic atrial fibrillation, cardiomyopathy and alcoholism. Presented from [place] after he was noted to have low blood pressure. Patient apparently lives in the [facility] and has been admitted or so ago with congestive heart failure and atrial fibrillation, according to him ejection fraction at that time was 25-30% . He was anticoagulated at that time and it was felt according to him that the etiology of his cardiomyopathy was alcoholism. He has been drinking quite heavily since the of his . Repeat 2-D echo with Doppler this admission shows an ejection fraction of 25-30%, consistent with history. He apparently had a stress test about a year ago that was negative for ischemia. Upon examination, patient is resting comfortably in bed. He continues to complain of a cough, productive. He denies any complaints of PND or orthopnea, has no chest discomfort, dizziness or palpitations. He does complain of chronic peripheral edema. 01/11/2017 Pateint seen and examined today, he denies any dizziness or lightheadedness however his blood pressure seems to be staying in the 80s range, his normal blood pressure sits around 90 systolic. Beta Morris was held because of the hypotension today. We would like the patient to be up ambulating in the hallway , to see if he'll tolerate his beta morris, otherwise we may need to decrease the dose. Plan for possible discharge home in 24 hours if stable. Objective - Vital Signs Vital signs: Vital Signs Temp 99.1 F 01/11/17 11:37 Pulse 87 01/11/17 11:37 Resp 16 01/11/17 11:37 BP 78/51 01/11/17 11:37 Pulse Ox 95 01/11/17 11:37 Intake & Output 01/10/17 01/11/17 01/11/17 18:59 06:59 18:59 Intake Total 720 360 480 Output Total 300 250 Balance 420 110 480 Weight 100.7 kg 100.7 kg Intake: Oral 720 360 480 Output: Urine 300 250 Other: # Voids 0 1 1 - Exam PHYSICAL EXAMINATION: HEENT: Head is atraumatic, normocephalic. Pupils equal, round. Neck is supple. There is no elevated jugular venous pressure. HEART EXAMINATION: Heart sounds irregularly irregular, S1 and S2 normal. No murmur or gallop heard. CHEST EXAMINATION: Lungs reveal diminished air entry throughout with scattered coarse rhonchi. No chest wall tenderness is noted on palpation or with deep breathing. ABDOMEN: Soft, nontender. Bowel sounds are heard. No organomegaly noted. EXTREMITIES: 2+ peripheral pulses with evidence of trace peripheral edema and no calf tenderness noted. NEUROLOGIC patient is awake, alert and oriented x3. - Labs CBC & Chem 7: 01/11/17 06:34 01/11/17 06:31 Labs: Abnormal Lab Results - Last 24 Hours (Table) 01/11/17 01/11/17 Range/Units 06:31 06:34 RBC 4.14 L (4.30-5.90) m/uL Hgb 10.8 L (13.0-17.5) gm/dL Hct 36.8 L (39.0-53.0) % MCHC 29.3 L (31.0-37.0) g/dL RDW 16.3 H (11.5-15.5) % Sodium 132 L (137-145) mmol/L Creatinine 0.65 L (0.66-1.25) mg/dL HDL Cholesterol 31 L (40-60) mg/dL Microbiology - Last 24 Hours (Table) 01/10/17 10:30 Gram Stain - Preliminary Sputum Sputum Culture - Preliminary 01/06/17 14:30 Blood Culture - Preliminary Blood No Growth after 96 hours 01/06/17 14:25 Blood Culture - Preliminary Blood No Growth after 96 hours Assessment and Plan Plan: Assessment and Plan Plan: Assessment and plan #1 cardiomyopathy, ejection fraction 25-30%, likely secondary to alcohol abuse #2 chronic atrial fibrillation #3 pneumonia #4 acute on chronic systolic congestive heart failure #5 hypotension, history of hypertension Cardiology's perspective, we will continue current dose of beta morris, have the patient up ambulating, if the blood pressure is 90 systolic or greater we will continue to give current dose of beta morris. Plan for possible discharge home in 24 hours if stable. DNP note has been reviewed, I agree with a documented findings and plan of care. Patient was seen and examined.
--- NOTE | 2017-01-11 16:49 | P.PN ---
Subjective Progress Note Date: 01/11/17 Progress note being dictated for Dr. Benoit 01/08/2017 Interval history: This a 56-year-old gentleman from [place], admitted with atrial fibrillation, with RVR, CHF exacerbation and and multiple other medical issues. Maintained on IV push Lasix, diuresing well with 24-hour I&O reflecting a negative fluid balance. Magnesium 1.4, receiving replacement. Echo reporting severely impaired LV function, EF 25-30%, dilated aortic root 4.2 cm. Denies chest pain, palpitations or increased shortness of breath. Telemetry atrial fibrillation, heart rates ranging 100s to 110s, up to 150 during the night. Afebrile. 01/09/2017 maintained on Rocephin and azithromycin. Anticoagulated on Xarelto. remains in atrial fibrillation, with heart rates up into the 130s, hypotensive with systolic blood pressures in the mid 80s, asymptomatic. Sodium 133. Maintained on Lasix IV push, diuresing well with 24-hour I&O reflecting a negative fluid balance. Chest x-ray reporting persistent bilateral pleural effusions without overt failure at this time. 01/10/17 remains in atrial fibrillation, last night heart rate up as high as 180s. Low-dose Beta alfredo initiated this morning. Lasix IV push converted to oral. Diuresing well with 24-hour I&O reflecting a negative fluid balance. Breathing improving. Afebrile. Denies chest pain, palpitations. 01/11/2017 telemetry reporting atrial fibrillation with better controlled ventricular rate, up to the 110s. Hypotensive with MAP down to 60, beta alfredo held. Denies chest pain, palpitations or increasing shortness of breath. T-max 99.1, normal WBC. Completed antibiotic course of Zithromax. Nebulized bronchodilator treatments discontinued related to tachycardia as per pulmonary. Objective - Vital Signs Vital signs: Vital Signs Temp 98.3 F 01/11/17 15:28 Pulse 87 01/11/17 15:28 Resp 16 01/11/17 15:28 BP 108/68 01/11/17 15:28 Pulse Ox 95 01/11/17 15:28 Intake & Output 01/10/17 01/11/17 01/11/17 18:59 06:59 18:59 Intake Total 720 360 480 Output Total 300 250 Balance 420 110 480 Weight 100.7 kg 100.7 kg Intake: Oral 720 360 480 Output: Urine 300 250 Other: # Voids 0 1 1 - Exam PHYSICAL EXAM: VITAL SIGNS: [as above] GENERAL: Sitting up in a chair, no acute distress HEENT: Conjunctivae normal. eyes normal. Oral mucosa moist NECK: No JVD. No thyroid enlargement. No LNs CARDIOVASCULAR: Positive S1, S2, Irregular, tachycardic, positive systolic murmur, RESPIRATION: Breath sounds diminished in the bases. Occasional rhonchi, fine bibasilar crackles. No bronchial breathing. ABDOMEN: Soft, nontender . No guarding. no masses palpable. No ascites,Bowel sounds heard. LEGS: trace edema. no swelling PSYCHIATRY: Alert and oriented -3, mood and affect normal. NERVOUS SYSTEM: Cranial N 2-12 grossly normal. Moves all 4 limbs. Diffuse weakness No focal deficits. No sensory deficit. Skin: no ulcer no rash Joints: No active swelling. No inflammation. - Labs CBC & Chem 7: 01/11/17 06:34 01/11/17 06:31 Labs: Abnormal Lab Results - Last 24 Hours (Table) 01/11/17 01/11/17 Range/Units 06:31 06:34 RBC 4.14 L (4.30-5.90) m/uL Hgb 10.8 L (13.0-17.5) gm/dL Hct 36.8 L (39.0-53.0) % MCHC 29.3 L (31.0-37.0) g/dL RDW 16.3 H (11.5-15.5) % Sodium 132 L (137-145) mmol/L Creatinine 0.65 L (0.66-1.25) mg/dL HDL Cholesterol 31 L (40-60) mg/dL Microbiology - Last 24 Hours (Table) 01/10/17 10:30 Gram Stain - Preliminary Sputum Sputum Culture - Preliminary 01/06/17 14:30 Blood Culture - Preliminary Blood No Growth after 96 hours 01/06/17 14:25 Blood Culture - Preliminary Blood No Growth after 96 hours Assessment and Plan Plan: 1. [ Acute on chronic CHF exacerbation, systolic dysfunction, EF 25-30%, cardiomyopathy possibly related to alcohol abuse,with possible pneumonia with acute tracheobronchitis, completed course of Zithromax]. 2. [ Anemia]. 3. [ History of EtOH abuse]. 4. [ Hypertension, currently with acute hypotension]. 5. [ Hyperlipidemia]. 6. [ Chronic persistent atrial fibrillation]. Plan: Continue on current medication regime , nebulized bronchodilators, empiric antibiotics, monitoring and symptomatic treatment. Antiarrhythmics/ Beta alfredo dosing as per cardiology, continue to monitor overnight. Discharge planning in progress for tomorrow-return to [place]. The impression and plan of care has been dictated as directed. : I performed a H&P examination of this patient and discussed the same with the dictator. I agree with the dictator's note. Any additional findings/opinions/ etc. will be noted.
[2017-01-11] MEDS: diphenhydrAMINE 25 MG CAP PO PRN (20:17)
[2017-01-11] MEDS: traZODone HCL 50 MG TAB PO SCH (20:17)
[2017-01-12] MEDS: MAGNESIUM OXIDE 400 MG TAB PO SCH ×2 (06:13→15:04)
[2017-01-12] MEDS: RIVAROXABAN 10 MG TAB PO SCH (06:13)
[2017-01-12] MEDS: POTASSIUM CHLORIDE ER 20 MEQ TAB.ER PO SCH ×2 (06:13→17:35)
[2017-01-12 06:19] VITALS: RESP 16
[2017-01-12] MEDS: AZITHROMYCIN 500 MG TAB PO SCH (08:01)
[2017-01-12] MEDS: FUROSEMIDE 20 MG TAB PO SCH ×2 (08:01→16:09)
[2017-01-12] MEDS: SPIRONOLACTONE 25 MG TAB PO SCH (08:02)
[2017-01-12] MEDS: METOPROLOL TARTRATE 25 MG TAB PO SCH (08:02)
[2017-01-12] MEDS: PANTOPRAZOLE 40 MG TABLET PO SCH (08:02)
[2017-01-12] MEDS: THIAMINE 100 MG TAB PO SCH (11:02)
[2017-01-12] MEDS: MULTIVITAMINS, THERA 1 EACH TAB PO SCH (11:02)
--- NOTE | 2017-01-12 12:42 | P.PN ---
<EdiRylie - Last Filed: 01/12/17 12:39> Subjective Progress Note Date: 01/12/17 Principal diagnosis: Acute exacerbation of chronic systolic congestive heart failure This is a 56-year-old male who presented to the emergency department because of shortness of breath and apparent low blood pressure. Apparently a nurse at the [facility] that he was staying at noted that his systolic blood pressure was in the 60s and 70s. He was told to drink lots of water. Subsequently, he was also found the following day to have a low blood pressure and for that reason he was sent into the hospital. In addition, he does have some mild shortness of breath. A bit of a cough not producing any phlegm. No fever. No chills. No chest pain. Unknown history of atrial fibrillation. The patient was admitted with a diagnosis of pneumonia and sepsis and heart failure. The patient sleeping comfortably laying on his right side. Has no complaints when I first walked into the room. On 01/08/2017 patient is reevaluated. Still complains of exertional dyspnea but states it is improved today. His currently resting in bed, no signs of respiratory distress, no accessory muscle use no wheezing, no rhonchi. He is on room air With O2 saturations are 93-95%. No febrile episodes, he is somewhat tachycardic with a heart rate from 110-120 BPM. Lung sounds diminished air entry throughout. No chest wall tenderness on palpation with deep breathing. Trace peripheral edema noted. Patient continues to diuresis, he is -2610 mL fluid balance over the last 24 hours. The patient is seen again today 01/09/2017 in follow-up on the selective care unit. He is awake and alert in no acute distress. He is breathing easier today as compared to yesterday. He's been maintaining good O2 saturations in the 90s on room air. He remains in a negative balance. Currently on Lasix 40 mg IV push every 12 hours. He remains on antibiotics in the form of ceftriaxone and azithromycin. He remains in atrial fibrillation with varying ventricular response. He has been on Xarelto. Ejection fraction 25-30%. The patient is seen again today 01/10/2017 in follow-up on the selective care unit. He is currently resting quite comfortably in bed. He is awake and alert in no acute distress. He denies any worsening shortness of breath, cough or congestion. He is nearly back to his baseline. Chest x-ray shows no evidence of overt heart failure. There is persistent small bilateral pleural effusions. He is maintaining good O2 saturations in the upper 90s on room air. He is afebrile. The cultures revealed no growth. No leukocytosis. Hemoglobin stable 10.3. Creatinine 0.63. He is on oral diuretics. His been initiated on beta blockers for some tachycardia arrhythmias secondary to atrial fibrillation with a rapid ventricular response. He remains anticoagulated on Xarelto. On 01/11/2017 the patient is being seen in follow-up. No active pulmonary issues. The patient is having some issues with tachycardia in relation with his atrial fibrillation. Cardiology requested the patient's stay in the hospital for another 24 hours. Meanwhile readings are being made for this patient ultimately go back to [facility] for further rehabilitation. He denied it of ventilation with Xarelto. He has no new complaints otherwise. Note that the patient was restarted back on his beta blockers and currently is on metoprolol 25 mg by mouth twice a day. There is being utilized for rate control. His blood pressure is holding knowing that the metoprolol was started at a lower dose. The patient is seen again today 01/12/2017 in follow-up on the selective care unit. He is awake and alert in no acute distress. He is having some ongoing issues with tachycardia with his atrial fibrillation and subsequent hypotension and dizziness. Cardiology is on the case and adjusting beta blockers. The plan upon discharge is to return to [facility] for inpatient rehabilitation. Objective - Vital Signs Vital signs: Vital Signs Temp 97.4 F L 01/12/17 11:05 Pulse 92 01/12/17 11:05 Resp 16 01/12/17 11:05 BP 88/50 01/12/17 11:05 Pulse Ox 94 L 01/12/17 11:05 Intake & Output 01/11/17 01/12/17 01/12/17 18:59 06:59 18:59 Intake Total 970 180 Output Total 500 Balance 970 -500 180 Weight 100.7 kg 98.5 kg Intake: IV 10 0.9% NS FLUSH 10 Oral 960 180 Output: Urine 500 Other: # Voids 1 2 - Exam GENERAL EXAM: Alert, comfortable in no apparent distress. HEAD: Normocephalic. EYES: Normal reaction of pupils, equal size. NOSE: Clear with pink turbinates. THROAT: No erythema or exudates. NECK: No masses, no JVD. CHEST: No chest wall deformity. LUNGS: Equal air entry with basilar crackles. CVS: S1 and S2 normal with an audible murmur, irregular rhythm. ABDOMEN: No hepatosplenomegaly, normal bowel sounds, no guarding or rigidity. SPINE: No scoliosis or deformity SKIN: No rashes CENTRAL NERVOUS SYSTEM: No focal deficits, tone is normal in all 4 extremities. Extremities: There is trace peripheral edema. No clubbing, no cyanosis. Peripheral pulses are intact. - Labs CBC & Chem 7: 01/11/17 06:34 01/11/17 06:31 Labs: Microbiology - Last 24 Hours (Table) 01/10/17 10:30 Gram Stain - Final Sputum Sputum Culture - Final 01/06/17 14:30 Blood Culture - Preliminary Blood No Growth after 120 hours 01/06/17 14:25 Blood Culture - Preliminary Blood No Growth after 120 hours Assessment and Plan Plan: Assessment: #1. Acute on chronic exacerbation of systolic congestive heart failure. Left ventricular systolic function severely impaired with an EF between 25-30% on an echo from 01/08/2017 #2. Acute tracheobronchitis, on combination of Zithromax and Rocephin for antibiotic coverage #3. Acute hypotension, currently normotensive #4. History of hypertension #5. History of diabetes #6. History of EtOH dependence, was receiving treatment at [facility] rehab facility #7. History of atrial fibrillation, on Xarelto Plan: The patient was seen and evaluated by Dr. Medrano. We'll continue with his current medications. He is improved today as compared to yesterday. We'll also continue with bronchodilators and empiric antibiotics. We will increase his activity as tolerated. He is cleared for discharge from the pulmonary standpoint. The plan is to transfer back to [facility] inpatient rehabilitation center. <Jaimee Medrano - Last Filed: 01/12/17 13:04> Objective - Vital Signs Vital signs: Vital Signs Temp 97.4 F L 01/12/17 11:05 Pulse 92 01/12/17 11:05 Resp 16 01/12/17 11:05 BP 88/50 01/12/17 11:05 Pulse Ox 94 L 01/12/17 11:05 Intake & Output 01/11/17 01/12/17 01/12/17 18:59 06:59 18:59 Intake Total 970 180 Output Total 500 Balance 970 -500 180 Weight 100.7 kg 98.5 kg Intake: IV 10 0.9% NS FLUSH 10 Oral 960 180 Output: Urine 500 Other: # Voids 1 2 - Labs CBC & Chem 7: 01/11/17 06:34 01/11/17 06:31 Labs: Microbiology - Last 24 Hours (Table) 01/10/17 10:30 Gram Stain - Final Sputum Sputum Culture - Final 01/06/17 14:30 Blood Culture - Preliminary Blood No Growth after 120 hours 01/06/17 14:25 Blood Culture - Preliminary Blood No Growth after 120 hours Assessment and Plan Plan: On today's evaluation I'm doing a joint evaluation to see this patient along with a nurse practitioner. I fully agree on the above-mentioned information. I do not see any active pulmonary issues. The patient is a bit frustrated he wants to go back to [facility] knowing that he doesn't want to lose a spot that was For him for further alcohol rehabilitation. The active issue is fine- tuning his beta blockers vis--vis his heart rate and blood pressure. I will leave these issues up to cardiology. No active pulmonary issues. We'll sign off the case.
[2017-01-12 16:08] VITALS: BP 90/58; PULSE 101; TEMP 97
--- NOTE | 2017-01-12 16:17 | P.DS ---
Providers Date of admission: 01/06/17 14:22 Attending physician: Prem Benoit Consults: 01/06/17 14:24 Consult Physician Urgent Consulting Provider: Jaimee Medrano Consult Reason/Comments: pneumonia, sepsis Do you want consulting provider notified?: Yes 01/06/17 17:36 Consult Physician Routine Consulting Provider: Leonard Mccallum Consult Reason/Comments: chf Do you want consulting provider notified?: Yes Primary care physician: Physician Nonstaff Hospital Course: This 56-year-old gentleman with a past medical history multiple medical problems from [facility] was admitted to [place] for rehab. The patient was admitted with a shortness of breath. The patient was found to have CHF acute exacerbation. Ejection fraction was found to be between 25 to 30%. Patient was treated with diuretics and other medications. Medications are adjusted. Cardiology saw the patient. Patient also had relative hypotension. Overall patient made significant improvement. Patient be discharged in a stable condition with guarded prognosis to rehab for continued rehab at this time. Total time taken is 35 minutes. On exam vitals stable. Cardio S1 and S2 normal. Respirator system few scattered rhonchi. Abdomen soft nontender. No system no focal deficit. Final diagnosis 1. 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 2. Possible acute purulent acute bronchitis no evidence of pneumonia. 3. Anemia of chronic disease. 4. History of EtOH abuse. 5. Hypertension. 6. Hyperlipidemia. 7. Chronic persistent atrial fibrillation. Patient Condition at Discharge: Serious Plan - Discharge Summary New Discharge Prescriptions: New Furosemide [Lasix] 20 mg PO BID@0900,1600 #60 tab Metoprolol Tartrate [Lopressor] 12.5 mg PO BID #60 tab Continue guaiFENesin SYRUP 100MG/5ML [Robitussin] 200 mg PO Q4H PRN PRN Reason: Cough Chlorpheniramine Maleate [Chlor-Trimeton] 4 mg PO Q4H PRN PRN Reason: Anxiety Magnesium Oxide [Mag-Ox] 400 mg PO TID@0600,1500,2200 Spironolactone [Aldactone] 50 mg PO DAILY@0600 Pantoprazole Sodium [Protonix] 40 mg PO DAILY@0600 Potassium Chloride ER [K-Dur 20] 20 meq PO BID@0600,1730 Thiamine [Vitamin B-1] 100 mg PO DAILY Rivaroxaban [Xarelto] 20 mg PO DAILY@0600 Multivitamins, Thera [Multivitamin (formulary)] 1 tab PO DAILY@0600 traZODone HCL 50 - 150 mg PO HS Discontinued Furosemide [Lasix] 20 mg PO DAILY@0600 Discharge Medication List Chlorpheniramine Maleate [Chlor-Trimeton] 4 mg PO Q4H PRN 01/06/17 [History] Magnesium Oxide [Mag-Ox] 400 mg PO TID@0600,1500,2200 01/06/17 [History] Multivitamins, Thera [Multivitamin (formulary)] 1 tab PO DAILY@0600 01/06/17 [ History] Pantoprazole Sodium [Protonix] 40 mg PO DAILY@0600 01/06/17 [History] Potassium Chloride ER [K-Dur 20] 20 meq PO BID@0600,1730 01/06/17 [History] Rivaroxaban [Xarelto] 20 mg PO DAILY@0600 01/06/17 [History] Spironolactone [Aldactone] 50 mg PO DAILY@0600 01/06/17 [History] Thiamine [Vitamin B-1] 100 mg PO DAILY 01/06/17 [History] guaiFENesin SYRUP 100MG/5ML [Robitussin] 200 mg PO Q4H PRN 01/06/17 [History] traZODone HCL 50 - 150 mg PO HS 01/06/17 [History] Furosemide [Lasix] 20 mg PO BID@0900,1600 #60 tab 01/11/17 [Rx] Metoprolol Tartrate [Lopressor] 12.5 mg PO BID #60 tab 01/12/17 [Rx] Follow up Appointment(s)/Referral(s): Steve Bhandari Dr. PCP [Other] - 1 Week Ye Cortez MD [STAFF PHYSICIAN] - 01/29/17 3:00 pm Jaimee Medrano MD [STAFF PHYSICIAN] - 2 Weeks Ambulatory/Diagnostic Orders: Complete Blood Count w/diff [LAB.AMB] Time Frame: 3 Days, Location: Determined By Patient Patient Instructions/Handouts: Heart Failure (DC), A-fib (Atrial Fibrillation) (DC) Activity/Diet/Wound Care/Special Instructions: [facility] Cardiology has cleared patient for discharge, Need lopressor 12.5mg BID dose. Diet: Cardiac,"CHF DIet",JOSEE Activity: Limited TIll F/U [facility]:[phone]
--- NOTE | 2017-01-12 16:35 | P.PN ---
Subjective Progress Note Date: 01/12/17 Principal diagnosis: Pneumonia and sepsis This is a pleasant 56-year-old gentleman with a history of chronic atrial fibrillation, cardiomyopathy and alcoholism. Presented from [place] [facility] after he was noted to have low blood pressure. Patient apparently lives in the [facility] and has been admitted or so ago with congestive heart failure and atrial fibrillation, according to him ejection fraction at that time was 25-30% . He was anticoagulated at that time and it was felt according to him that the etiology of his cardiomyopathy was alcoholism. He has been drinking quite heavily since the of his . Repeat 2-D echo with Doppler this admission shows an ejection fraction of 25-30%, consistent with history. He apparently had a stress test about a year ago that was negative for ischemia. Upon examination, patient is resting comfortably in bed. He continues to complain of a cough, productive. He denies any complaints of PND or orthopnea, has no chest discomfort, dizziness or palpitations. He does complain of chronic peripheral edema. 01/11/2017 Pateint seen and examined today, he denies any dizziness or lightheadedness however his blood pressure seems to be staying in the 80s range, his normal blood pressure sits around 90 systolic. Beta Morris was held because of the hypotension today. We would like the patient to be up ambulating in the hallway , to see if he'll tolerate his beta morris, otherwise we may need to decrease the dose. Plan for possible discharge home in 24 hours if stable. 2016 Patient seen and examined this morning, denies any dizziness or lightheadedness. Blood pressure remains in the low 90s high 80s. Decrease the dose of beta morris to 12-1/2 mg one tablet by mouth twice a day. He may be able to be discharged from cardiology's perspective and we'll make him a follow- up appointment in the office post discharge. Objective - Vital Signs Vital signs: Vital Signs Temp 97 F L 01/12/17 16:00 Pulse 101 H 01/12/17 16:00 Resp 16 01/12/17 16:00 BP 90/58 01/12/17 16:00 Pulse Ox 98 01/12/17 16:00 Intake & Output 01/11/17 01/12/17 01/12/17 18:59 06:59 18:59 Intake Total 970 190 Output Total 500 Balance 970 -500 190 Weight 100.7 kg 98.5 kg Intake: IV 10 10 0.9% NS FLUSH 10 10 Oral 960 180 Output: Urine 500 Other: # Voids 1 2 1 - Exam PHYSICAL EXAMINATION: HEENT: Head is atraumatic, normocephalic. Pupils equal, round. Neck is supple. There is no elevated jugular venous pressure. HEART EXAMINATION: Heart sounds irregularly irregular, S1 and S2 normal. No murmur or gallop heard. CHEST EXAMINATION: Lungs reveal diminished air entry throughout with scattered coarse rhonchi. No chest wall tenderness is noted on palpation or with deep breathing. ABDOMEN: Soft, nontender. Bowel sounds are heard. No organomegaly noted. EXTREMITIES: 2+ peripheral pulses with evidence of trace peripheral edema and no calf tenderness noted. NEUROLOGIC patient is awake, alert and oriented x3. - Labs CBC & Chem 7: 01/11/17 06:34 01/11/17 06:31 Labs: Microbiology - Last 24 Hours (Table) 01/10/17 10:30 Gram Stain - Final Sputum Sputum Culture - Final 01/06/17 14:30 Blood Culture - Preliminary Blood No Growth after 120 hours 01/06/17 14:25 Blood Culture - Preliminary Blood No Growth after 120 hours Assessment and Plan Plan: Assessment and Plan Plan: Assessment and plan #1 cardiomyopathy, ejection fraction 25-30%, likely secondary to alcohol abuse #2 chronic atrial fibrillation #3 pneumonia #4 acute on chronic systolic congestive heart failure #5 hypotension, history of hypertension Cardiology's perspective, we'll decrease the dose of beta morris to 12-1/2 mg one tablet by mouth twice a day. He may be able to be discharged home today to follow-up in the office post discharge. DNP note has been reviewed, I agree with a documented findings and plan of care. Patient was seen and examined.
[2017-01-12] MEDS ORDERED: METOPROLOL TARTRATE 12.5 MG TAB PO SCH (21:00)
--- NOTE | 2017-01-29 11:06 | CDI ---
In responding to this query, please exercise your independent professional judgment. The [facility] Coding Staff and Clinical Documentation Specialists appreciate your assistance in clarifying documentation, maintaining compliance with coding guidelines, accurately documenting patients condition and capturing severity of illness. The fact that a question is asked does not imply that any particular answer is desired or expected. Communication forms are a method of clarifying documentation and are not made part of the Legal Health Record. Thank you in advance for your clarification. Last Revision, July 2016 Aj Mayberry [address] [place] [address] Documentation Clarification Form Date: 01/29/2017 10:54:00 AM From: Lelo Vargas Admit Date: 01/06/2017 2:22:00 PM Patient Name: Armani Zamarripa Visit Number: [id number] Discharge Date: 01/06/17 Dr. Prem Benoit Documentation and location in medical record included ED record, consult, PN 01/08, 01/09, 01/10, 01/11, 01/12, History/Risk Factors: alcoholic cardiomyopathy, persistent A fib, Ac on Chr systolic CHF, Hypertensive heart disease w heart failure, Crohn's and acute bronchitis. Clinical Indicators: WBC/Left Shift: 10/8 - WBC 3.7, no left shift Lactic acid: 1.2 Blood cultures: negative Vitals signs on admission: P-101, RR 22, BP 104-59, O2 stats 93 Other Clinical Indicators: Treatment: ID Consult: Antibiotics: IV Azithromycin, IV Ceftriaxone, IV fluids IV Bolus: yes in ED Other: In your professional opinion, please clarify if these findings signify one of the following conditions, whether the condition is POA, and cause, if known: Sepsis, ruled out SIRS, without underlying infectious process Sepsis Severe Sepsis Septic Shock Unable to determine Other, please specify Present on Admission: Yes No * Identify the (suspected) organism * Link or clarify if there is associated (due to/with): - Organ failure - Shock SIRS Criteria: 2 or more of the following may indicate SIRS Temperature < 96.8F(36C) or > 101.0F (38C) Heart Rate > 90 bpm Respiratory Rate > 20 breaths/min or PaCO2 < 32 mmHg White Blood Cell Count > 12,000 or < 4,000 cells/mm3 or > 10% bands Lactate >2.0 mmol/L (>4.0 is equivalent to septic shock) Please document addendum in your discharge summary in order to capture severity of illness and risk of mortality. Include clinical findings that support your diagnosis. FYI: Press F11 to launch patient chart. If you have a question about this query, please contact Ciera Mcrae, Skein Bander, Aj Mayberry at [phone] between 8am and 5pm. NANCY
--- NOTE | 2017-01-29 22:09 | PN ---
PROGRESS NOTE Sepsis ruled out. MMODL / IJN: [id number] /
== END 2017-01-12 18:21 | disposition designated cancer center or children's hospital (05) | DRG 292 ==
LOC: EC 12:16 → 6SEL 14:22
PROVIDERS: ADMIT Hospitalist; ATTEND Hospitalist
DX: I11.0 Hypertensive heart disease with heart failure (principal); I48.1 Persistent atrial fibrillation; I95.9 Hypotension, unspecified; I42.6 Alcoholic cardiomyopathy; Z79.01 Long term (current) use of anticoagulants; K50.90 Crohn's disease, unspecified, without complications; E11.9 Type 2 diabetes mellitus without complications; D63.8 Anemia in other chronic diseases classified elsewhere; I50.23 Acute on chronic systolic (congestive) heart failure; J20.9 Acute bronchitis, unspecified; R09.02 Hypoxemia; I77.819 Aortic ectasia, unspecified site; E78.5 Hyperlipidemia, unspecified; F10.20 Alcohol dependence, uncomplicated; Z79.899 Other long term (current) drug therapy; Z90.49 Acquired absence of other specified parts of digestive tract; Z98.84 Bariatric surgery status; Z88.0 Allergy status to penicillin
CPT/HCPCS: 36415; 71010; 71020; 80048; 80053; 80061; 80306; 81003; 82550; 82553; 83605; 83735; 83880; 84484; 85025; 85610; 85730; 87040; 87070; 87205; 93005; 93306; 94640; 94760; 96365; 96367; 99291